=== PATIENT | female | born 1975 | race African-American/Black ===

== ENCOUNTER 2021-07-16 11:29 | Inpatient (IN) | payer MEDICARE, MEDICAID ==
[~2021-07-16] VITALS: Ht 162.6 cm; Wt 76.7 kg
[2021-07-16] VITALS (24 sets, daily range): BP systolic 64–181; BP diastolic 30–153
[~2021-07-16 11:29] MED LIST: ATROPINE SULFATE 1MG/10ML SYR ONE; CALCIUM CHLORIDE 1GM/10ML SYR IV ONE; EPINEPHRINE 0.1MG/ML (1:10,000) 10ML SYR ONE; ETOMIDATE 2MG/ML 10ML VIAL IV ONE; SODIUM BICARBONATE 8.4% 1 MEQ/ML 50ML SYR IV ONE; VECURONIUM BROMIDE 10 MG/VIAL IV ONE
[2021-07-16] MEDS ORDERED: CALCIUM CHLORIDE 1,000 MG in DEXT 5% WATER 100 ML IV ONE ×2 (11:45→12:15)
[2021-07-16] MEDS ORDERED: INSULIN REGULAR (HUMULIN R) 300UNITS/3ML VIAL IV ONE ×2 (11:45→13:00)
[2021-07-16] MEDS ORDERED: SODIUM BICARBONATE 8.4% 1 MEQ/ML 50ML SYR IV ONE ×2 (11:45→12:15)
[2021-07-16] MEDS ORDERED: NOREPINEPHRINE 8MG/250ML PMX 250 ML IV ONE ×2 (12:15→12:23)
[2021-07-16] MEDS ORDERED: VECURONIUM BROMIDE 10 MG/VIAL IV ONE (12:15)
[2021-07-16] MEDS ORDERED: ETOMIDATE 2MG/ML 10ML VIAL IV ONE (12:15)
[2021-07-16 12:28] LABS: HEMATOCRIT. 30.1 % (36.0-48.0); HEMOGLOBIN. 7.9 g/dL (12.0-16.0); MEAN CORPUSCULAR HEMOGLOBIN 30.9 pg (28.0-32.0); MEAN CORPUSCULAR VOLUME 117.3 fL (81.0-99.0); MEAN PLATELET VOLUME 8.4 fl (7.4-10.4); PLATELET 149 x1000/uL (130-400); RED BLOOD CELL COUNT 2.57 mill/uL (4.2-5.4); RED CELL DISTRIBUTION WIDTH 20.5 % (11.6-14.6)
[2021-07-16 12:37] LABS: CHLORIDE 104 mEq/L (98-107)
[2021-07-16 12:42] LABS: ETHANOL BLOOD < 10 mg/dL
[2021-07-16 12:52] LABS: HCG SCREEN NEGATIVE
[2021-07-16] MEDS ORDERED: INSULIN REGULAR (DRIP) 100 UNITS in SODIUM CHLORIDE 0.9% 99 ML IV ONE (13:00)
[2021-07-16] MEDS ORDERED: MIDAZOLAM 100MG/100ML PMX 100 ML IV PRN (13:00)
[2021-07-16 13:13] LABS: PLATELET ESTIMATE NORMAL
[2021-07-16 13:18] LABS: CLARITY URINE CLEAR (CLEAR); COLOR URINE YELLOW (YELLOW); KETONES URINE TRACE (NEGATIVE); LEUKOCYTE ESTERASE URINE NEGATIVE (NEGATIVE); NITRITE URINE NEGATIVE (NEGATIVE); OCCULT BLOOD URINE NEGATIVE (NEGATIVE); PROTEIN URINE 2+ (NEGATIVE); SPECIFIC GRAVITY URINE 1.021 (1.005-1.030); UROBILINOGEN URINE 0.2 E.U./dL (0.2-1.0)
[2021-07-16 13:55] LABS: *AMPHETAMINES SCREEN URINE NEGATIVE (NEGATIVE); *BARBITURATES SCREEN URINE NEGATIVE (NEGATIVE); *BENZODIAZEPINES SCREEN URINE NEGATIVE (NEGATIVE); *COCAINE SCREEN URINE NEGATIVE (NEGATIVE); CANNABINOID URINE SCREEN NEGATIVE (NEGATIVE); METHADONE URINE SCREEN NEGATIVE (NEGATIVE); OPIATES URINE SCREEN NEGATIVE (NEGATIVE); PHENCYCLIDINE URINE SCREEN NEGATIVE (NEGATIVE)
[2021-07-16] MEDS ORDERED: INSULIN REGULAR (DRIP) 100 UNITS in SODIUM CHLORIDE 0.9% 99 ML IV PRN (14:15)
[2021-07-16 14:40] LABS: BG BASE EXCESS -26.4 mmol/L (-2.0-2.0); BG CARBOXYHEMOGLOBIN 0.2 % (0.5-1.5); BG DEOXYHEMOGLOBIN 11.8 % (0.0-5.0); BG FRACTION INSPIRED OXYGEN 100; BG HCO3 ACT 6.4 mmol/L (22.0-26.0); BG METHEMOGLOBIN 0.2 % (0.0-1.5); BG OXYGEN SATURATION 88.2 % (92.0-98.5); BG OXYHEMOGLOBIN 87.8 % (94.0-97.0); BG PCO2 37.3 mmHg (35.0-45.0); BG PH 6.852 (7.350-7.450); BG PO2 80.7 mmHg (75.0-100.0); BG SAMPLE SITE RIGHT RADIAL; BG TOTAL HEMOGLOBIN 10.9 g/dL (12.0-18.0); BG VENT MODE VENT - AC
[2021-07-16] MEDS ORDERED: SODIUM BICARBONATE 8.4% 1 MEQ/ML 50ML SYR IV NR ×2 (14:45→17:00)
[2021-07-16] MEDS ORDERED: IPRATROPIUM/ALBUTEROL 0.5-3(2.5)MG/3ML NEB HHN SCH (15:00)
[2021-07-16] MEDS ORDERED: SODIUM BICARBONATE 150 MEQ in SODIUM CHLORIDE 0.45% 1,000 ML IV SCH (16:00)
[2021-07-16] MEDS ORDERED: MAGNESIUM/ALUMINUM HYDROXIDE/SIMETHICONE 30ML UDC PO PRN (16:30)
[2021-07-16] MEDS ORDERED: NOREPINEPHRINE 8 MG in DEXT 5% WATER 242 ML IV PRN ×2 (16:30→17:00)
[2021-07-16] MEDS ORDERED: DOCUSATE SODIUM 100MG CAPSULE PO PRN (16:30)
[2021-07-16] MEDS ORDERED: ACETAMINOPHEN 325MG TABLET PO PRN ×2 (16:30)
[2021-07-16] MEDS ORDERED: DEXTROSE 50% WATER 50ML SYRINGE IV PRN ×2 (16:30)
[2021-07-16] MEDS ORDERED: GUAIFENESIN 200MG/10ML SUGAR FREE UDC PO PRN (16:30)
[2021-07-16] MEDS ORDERED: IPRATROPIUM/ALBUTEROL 0.5-3(2.5)MG/3ML NEB NEB PRN (16:30)
[2021-07-16 16:52] LABS: BG BASE EXCESS -15.7 mmol/L (-2.0-2.0); BG CARBOXYHEMOGLOBIN 0.3 % (0.5-1.5); BG DEOXYHEMOGLOBIN 0.5 % (0.0-5.0); BG FRACTION INSPIRED OXYGEN 100; BG HCO3 ACT 10.4 mmol/L (22.0-26.0); BG METHEMOGLOBIN 0.2 % (0.0-1.5); BG OXYGEN SATURATION 99.5 % (92.0-98.5); BG PCO2 25.8 mmHg (35.0-45.0); BG PH 7.223 (7.350-7.450); BG PO2 450.6 mmHg (75.0-100.0); BG SAMPLE SITE RIGHT BRACHIAL; BG TOTAL HEMOGLOBIN 10.3 g/dL (12.0-18.0); BG TOTAL RESPIRATORY RATE 24 b/min; BG VENT MODE VENT - AC
[2021-07-16] MEDS: INSULIN REGULAR (DRIP) 100 UNITS in SODIUM CHLORIDE 0.9% 100 ML IV SCH ×2 (17:10→19:43)
[2021-07-16] MEDS: MIDAZOLAM HCL 100 MG in SODIUM CHLORIDE 0.9% 80 ML IV PRN (17:10)
[2021-07-16 17:17] LABS: TOTAL IRON BINDING CAPACITY 240 ug/dL (250-450)
[2021-07-16] MEDS: SODIUM CHLORIDE 0.9% 1,000 ML IV SCH ×2 (17:31→23:54)
[2021-07-16] MEDS: BLOOD SUGAR DIAGNOSTIC STRIP TEST SCH ×7 (17:31→23:21)
[2021-07-16 17:35] LABS: FOLIC ACID (FOLATE) SERUM >20 ng/mL ng/mL (>5.38)
[2021-07-16 17:45] LABS: VITAMIN B12 SERUM >2000 pg/mL pg/mL (211-911)
[2021-07-16] MEDS ORDERED: DEXT 5%/0.9% NACL 1,000 ML IV SCH (19:00)
[2021-07-16] MEDS ORDERED: HYDR100T26 MT (19:16)
[2021-07-16] MEDS ORDERED: CLON0.2T MT (19:17)
[2021-07-16] MEDS ORDERED: CARV25TA47 PO (19:18)
[2021-07-16] MEDS ORDERED: CALC0.253 MT (19:19)
[2021-07-16] MEDS ORDERED: CLOP-31 PO (19:19)
[2021-07-16] MEDS ORDERED: SEVE800T25 PO (19:19)
[2021-07-16] MEDS ORDERED: PREG50CA MT (19:20)
[2021-07-16] MEDS ORDERED: INSU100I28 SQ (19:21)
[2021-07-16] MEDS ORDERED: ROSU5TAB MT (19:21)
[2021-07-16] MEDS ORDERED: PROT40 MT (19:22)
[2021-07-16] MEDS ORDERED: AMLO10TA4 MT (19:22)
[2021-07-16] MEDS ORDERED: APIX2.5T MT (19:22)
[2021-07-16] MEDS ORDERED: FURO-152 MT (19:23)
[2021-07-16 20:50] LABS: BG BASE EXCESS -10.1 mmol/L (-2.0-2.0); BG CARBOXYHEMOGLOBIN 0.3 % (0.5-1.5); BG DEOXYHEMOGLOBIN 0.9 % (0.0-5.0); BG FRACTION INSPIRED OXYGEN 50; BG HCO3 ACT 15.2 mmol/L (22.0-26.0); BG METHEMOGLOBIN 0.1 % (0.0-1.5); BG OXYGEN SATURATION 99.1 % (92.0-98.5); BG OXYHEMOGLOBIN 98.7 % (94.0-97.0); BG PCO2 31.6 mmHg (35.0-45.0); BG PO2 271.8 mmHg (75.0-100.0); BG SAMPLE SITE RIGHT RADIAL; BG TOTAL HEMOGLOBIN 10.2 g/dL (12.0-18.0); BG VENT MODE VENT - AC
[2021-07-16] MEDS: PANTOPRAZOLE 80 MG in SODIUM CHLORIDE 0.9% 100 ML IV SCH (20:50)
[2021-07-16 21:35] LABS: HEMOGLOBIN 10.6 g/dL (12.0-16.0)
[2021-07-17] VITALS (92 sets, daily range): BP systolic 130–177; BP diastolic 71–101
[2021-07-17] MEDS: INSULIN REGULAR (DRIP) 100 UNITS in SODIUM CHLORIDE 0.9% 100 ML IV SCH ×2 (00:06→06:28)
[2021-07-17] MEDS: BLOOD SUGAR DIAGNOSTIC STRIP TEST SCH ×13 (00:24→16:41)
[2021-07-17 01:05] LABS: HEMATOCRIT 26.3 % (36.0-48.0); HEMOGLOBIN 8.8 g/dL (12.0-16.0)
[2021-07-17 01:22] LABS: CREATINE KINASE MB FRACTION 10.4 ng/mL (0.5-3.6)
[2021-07-17] MEDS: IPRATROPIUM/ALBUTEROL 0.5-3(2.5)MG/3ML NEB HHN SCH ×5 (04:10→21:00)
[2021-07-17] MEDS: MIDAZOLAM HCL 100 MG in SODIUM CHLORIDE 0.9% 80 ML IV PRN (04:43)
[2021-07-17] MEDS ORDERED: DEXT 5%/0.9% NACL 1,000 ML IV SCH (04:45)
[2021-07-17 05:20] LABS: BASOPHILS % 0.2 % (0.0-2.0); EOSINOPHILS % 0.1 % (0.0-5.0); HEMATOCRIT. 28.1 % (36.0-48.0); HEMOGLOBIN. 9.5 g/dL (12.0-16.0); LYMPHOCYTES % 16.1 % (20.0-50.0); MEAN CORPUSCULAR HEMOGLOBIN 31.1 pg (28.0-32.0); MEAN CORPUSCULAR VOLUME 92.4 fL (81.0-99.0); MEAN PLATELET VOLUME 8.6 fl (7.4-10.4); MONOCYTES % 14.4 % (2.0-8.0); NEUTROPHILS % 69.2 % (40.0-76.0); PLATELET 218 x1000/uL (130-400); RED BLOOD CELL COUNT 3.04 mill/uL (4.2-5.4); RED CELL DISTRIBUTION WIDTH 19.3 % (11.6-14.6)
[2021-07-17 05:23] LABS: CHLORIDE 116 mEq/L (98-107)
[2021-07-17 05:34] LABS: PHOSPHORUS 3.1 mg/dL (2.5-4.9)
[2021-07-17 05:40] LABS: CREATINE KINASE MB FRACTION 8.1 ng/mL (0.5-3.6)
[2021-07-17] MEDS: PANTOPRAZOLE 80 MG in SODIUM CHLORIDE 0.9% 100 ML IV SCH (05:47)
[2021-07-17 08:08] LABS: BG BASE EXCESS -2.6 mmol/L (-2.0-2.0); BG CARBOXYHEMOGLOBIN 0.2 % (0.5-1.5); BG DEOXYHEMOGLOBIN 4.1 % (0.0-5.0); BG HCO3 ACT 20.4 mmol/L (22.0-26.0); BG METHEMOGLOBIN 0.3 % (0.0-1.5); BG OXYGEN SATURATION 95.9 % (92.0-98.5); BG OXYHEMOGLOBIN 95.4 % (94.0-97.0); BG PCO2 28.9 mmHg (35.0-45.0); BG PH 7.466 (7.350-7.450); BG PO2 86.1 mmHg (75.0-100.0); BG SAMPLE SITE RIGHT RADIAL; BG TOTAL HEMOGLOBIN 9.8 g/dL (12.0-18.0); BG VENT MODE VENT - AC
[2021-07-17] MEDS ORDERED: KCL 20MEQ/100ML PREMIX 100 ML IV NR (08:30)
[2021-07-17] MEDS ORDERED: PANTOPRAZOLE SODIUM 40 MG/VIAL IV SCH (09:00)
[2021-07-17] MEDS ORDERED: VANCOMYCIN 1 G PREMIX 200 ML IV NR (10:30)
[2021-07-17] MEDS ORDERED: DEXTROSE 50% WATER 50ML SYRINGE IV PRN (11:00)
[2021-07-17] MEDS: INSULIN LISPRO 100 UNITS/ML SUBCUT SCH ×2 (11:33→16:47)
[2021-07-17] MEDS: CEFEPIME 500 MG in DEXTROSE 5% WATER 50 ML IV SCH (12:00)
[2021-07-17] MEDS: SODIUM BICARBONATE 100 MEQ in DEXTROSE 5% WATER 1,000 ML IV SCH ×2 (12:00→21:40)
[2021-07-17] MEDS: SUCRALFATE 1 G/10 ML UDC PO SCH ×2 (13:32→17:49)
[2021-07-17] MEDS: CLONIDINE 0.1MG TABLET PO PRN ×2 (15:31→20:46)
[2021-07-17 15:46] LABS: HEMATOCRIT 28.2 % (36.0-48.0); HEMOGLOBIN 9.4 g/dL (12.0-16.0)
[2021-07-17 16:05] LABS: INR 1.3
[2021-07-17 16:39] LABS: HEPATITIS B SURFACE ANTIGEN NEGATIVE
[2021-07-17] MEDS: DOCUSATE SODIUM SUGAR FREE 100MG/10ML UDC NG SCH (16:46)
[2021-07-17] MEDS: PANTOPRAZOLE SODIUM 40 MG/VIAL IV SCH (16:46)
[2021-07-17] MEDS ORDERED: PROPOFOL 10MG/ML 100ML 100 ML IV PRN (17:45)
[2021-07-17] MEDS: PROPOFOL 10MG/ML 100ML 100 ML IV SCH (18:51)
[2021-07-17] MEDS ORDERED: FENTANYL CITRATE/PF 2,500 MCG in SODIUM CHLORIDE 0.9% 200 ML IV PRN (19:30)
[2021-07-17] MEDS ORDERED: EPOETIN ALFA-EPBX 10,000 UNIT/ML VIAL SUBCUT NR (21:00)
[2021-07-17] MEDS: INSULIN GLARGINE UD 100 UNITS/ML SYR SUBCUT SCH (21:39)
[2021-07-17] MEDS: CLONIDINE 0.1MG TABLET PO SCH (22:38)
[2021-07-17] MEDS: HYDRALAZINE HCL 50MG TABLET PO SCH (22:39)
[2021-07-17 23:57] LABS: HEMATOCRIT 29.3 % (36.0-48.0); HEMOGLOBIN 9.7 g/dL (12.0-16.0)
[2021-07-18] VITALS (90 sets, daily range): BP systolic 120–176; BP diastolic 69–99
[2021-07-18] MEDS: IPRATROPIUM/ALBUTEROL 0.5-3(2.5)MG/3ML NEB HHN SCH ×6 (00:30→20:48)
[2021-07-18] MEDS: SUCRALFATE 1 G/10 ML UDC PO SCH ×5 (00:32→23:36)
[2021-07-18] MEDS: INSULIN LISPRO 100 UNITS/ML SUBCUT SCH ×5 (00:34→23:36)
[2021-07-18] MEDS: BLOOD SUGAR DIAGNOSTIC STRIP TEST SCH ×5 (00:35→23:36)
[2021-07-18] MEDS: CLONIDINE 0.1MG TABLET PO PRN (03:38)
[2021-07-18 04:52] LABS: BASOPHILS % 0.4 % (0.0-2.0); EOSINOPHILS % 0.2 % (0.0-5.0); HEMATOCRIT. 29.9 % (36.0-48.0); HEMOGLOBIN. 9.7 g/dL (12.0-16.0); LYMPHOCYTES % 13.6 % (20.0-50.0); MEAN CORPUSCULAR HEMOGLOBIN 30.1 pg (28.0-32.0); MEAN CORPUSCULAR VOLUME 92.9 fL (81.0-99.0); MEAN PLATELET VOLUME 8.4 fl (7.4-10.4); MONOCYTES % 7.6 % (2.0-8.0); NEUTROPHILS % 78.2 % (40.0-76.0); PLATELET 219 x1000/uL (130-400); RED BLOOD CELL COUNT 3.22 mill/uL (4.2-5.4); RED CELL DISTRIBUTION WIDTH 20.5 % (11.6-14.6)
[2021-07-18 05:00] LABS: CHLORIDE 114 mEq/L (98-107)
[2021-07-18 05:08] LABS: PHOSPHORUS 3.9 mg/dL (2.5-4.9)
[2021-07-18] MEDS: HYDRALAZINE HCL 50MG TABLET PO SCH ×3 (05:32→21:01)
[2021-07-18] MEDS: CLONIDINE 0.1MG TABLET PO SCH ×3 (05:33→21:01)
[2021-07-18] MEDS: PANTOPRAZOLE SODIUM 40 MG/VIAL IV SCH ×2 (08:40→17:39)
[2021-07-18] MEDS: DOCUSATE SODIUM SUGAR FREE 100MG/10ML UDC NG SCH ×2 (08:40→17:39)
[2021-07-18] MEDS: AMLODIPINE 5MG TABLET PO SCH (08:40)
[2021-07-18] MEDS: PROPOFOL 10MG/ML 100ML 100 ML IV SCH (08:43)
[2021-07-18 09:32] LABS: BG BASE EXCESS -1.1 mmol/L (-2.0-2.0); BG CARBOXYHEMOGLOBIN 0.3 % (0.5-1.5); BG DEOXYHEMOGLOBIN 1.8 % (0.0-5.0); BG FRACTION INSPIRED OXYGEN 30; BG HCO3 ACT 22.1 mmol/L (22.0-26.0); BG METHEMOGLOBIN 0.2 % (0.0-1.5); BG OXYGEN SATURATION 98.2 % (92.0-98.5); BG OXYHEMOGLOBIN 97.7 % (94.0-97.0); BG PCO2 31.3 mmHg (35.0-45.0); BG PH 7.466 (7.350-7.450); BG PO2 118.4 mmHg (75.0-100.0); BG SAMPLE SITE RIGHT RADIAL; BG TOTAL HEMOGLOBIN 9.8 g/dL (12.0-18.0); BG VENT MODE VENT - AC
[2021-07-18] MEDS: DEXT 5%/0.9% NACL 1,000 ML IV SCH ×2 (10:15→23:35)
[2021-07-18] MEDS ORDERED: VANCOMYCIN 500 MG PREMIX 100 ML IV SCH (11:00)
[2021-07-18] MEDS: CEFEPIME 500 MG in DEXTROSE 5% WATER 50 ML IV SCH (11:21)
[2021-07-18] MEDS: INSULIN GLARGINE UD 100 UNITS/ML SYR SUBCUT SCH ×2 (11:28→21:02)
[2021-07-18 17:31] LABS: HEMATOCRIT 28.5 % (36.0-48.0); HEMOGLOBIN 9.4 g/dL (12.0-16.0)
[2021-07-18] MEDS: PROPOFOL 10MG/ML 100ML 100 ML IV PRN (21:21)
[2021-07-18 23:00] LABS: HEMATOCRIT 26.9 % (36.0-48.0); HEMOGLOBIN 8.8 g/dL (12.0-16.0)
[2021-07-19] VITALS (86 sets, daily range): BP systolic 126–181; BP diastolic 71–99
[2021-07-19] MEDS: IPRATROPIUM/ALBUTEROL 0.5-3(2.5)MG/3ML NEB HHN SCH ×6 (00:32→20:34)
[2021-07-19 04:50] LABS: BASOPHILS % 0.2 % (0.0-2.0); EOSINOPHILS % 0.2 % (0.0-5.0); HEMATOCRIT. 29.5 % (36.0-48.0); HEMOGLOBIN. 9.4 g/dL (12.0-16.0); LYMPHOCYTES % 15.3 % (20.0-50.0); MEAN CORPUSCULAR HEMOGLOBIN 30.6 pg (28.0-32.0); MEAN CORPUSCULAR VOLUME 95.8 fL (81.0-99.0); MEAN PLATELET VOLUME 8.5 fl (7.4-10.4); MONOCYTES % 9.1 % (2.0-8.0); NEUTROPHILS % 75.2 % (40.0-76.0); PLATELET 187 x1000/uL (130-400); RED BLOOD CELL COUNT 3.08 mill/uL (4.2-5.4); RED CELL DISTRIBUTION WIDTH 21.1 % (11.6-14.6)
[2021-07-19 05:08] LABS: CHLORIDE 116 mEq/L (98-107)
[2021-07-19 05:22] LABS: PHOSPHORUS 3.3 mg/dL (2.5-4.9)
[2021-07-19 05:23] LABS: CREATINE KINASE 215 IU/L (26-192)
[2021-07-19] MEDS: BLOOD SUGAR DIAGNOSTIC STRIP TEST SCH ×4 (05:40→23:58)
[2021-07-19] MEDS: HYDRALAZINE HCL 50MG TABLET PO SCH ×3 (05:40→22:01)
[2021-07-19] MEDS: CLONIDINE 0.1MG TABLET PO SCH ×3 (05:40→22:00)
[2021-07-19] MEDS: INSULIN LISPRO 100 UNITS/ML SUBCUT SCH ×3 (05:40→18:19)
[2021-07-19] MEDS: SUCRALFATE 1 G/10 ML UDC PO SCH ×3 (05:42→17:32)
[2021-07-19] MEDS: PROPOFOL 10MG/ML 100ML 100 ML IV PRN ×2 (07:32→14:30)
[2021-07-19] MEDS: DOCUSATE SODIUM SUGAR FREE 100MG/10ML UDC NG SCH ×2 (08:40→17:30)
[2021-07-19] MEDS: PANTOPRAZOLE SODIUM 40 MG/VIAL IV SCH ×2 (08:40→17:30)
[2021-07-19] MEDS: AMLODIPINE 5MG TABLET PO SCH (08:41)
[2021-07-19] MEDS: CLONIDINE 0.1MG TABLET PO PRN (08:41)
[2021-07-19] MEDS ORDERED: LISINOPRIL 20MG TABLET PO SCH (09:00)
[2021-07-19] MEDS: CEFEPIME 500 MG in DEXTROSE 5% WATER 50 ML IV SCH (09:24)
[2021-07-19] MEDS: INSULIN GLARGINE UD 100 UNITS/ML SYR SUBCUT SCH ×2 (09:26→22:06)
[2021-07-19 09:34] LABS: BG CARBOXYHEMOGLOBIN 0.3 % (0.5-1.5); BG DEOXYHEMOGLOBIN 1.8 % (0.0-5.0); BG FRACTION INSPIRED OXYGEN 30; BG HCO3 ACT 23.5 mmol/L (22.0-26.0); BG METHEMOGLOBIN 0.3 % (0.0-1.5); BG OXYGEN SATURATION 98.2 % (92.0-98.5); BG OXYHEMOGLOBIN 97.6 % (94.0-97.0); BG PCO2 33.6 mmHg (35.0-45.0); BG PH 7.462 (7.350-7.450); BG PO2 111.9 mmHg (75.0-100.0); BG SAMPLE SITE RIGHT RADIAL; BG TOTAL HEMOGLOBIN 9.9 g/dL (12.0-18.0); BG VENT MODE VENT - AC
[2021-07-19] MEDS ORDERED: NA PHOS,M-B/NA PHOS,DI-BA ENEMA 118ML PR NR (10:30)
[2021-07-19] MEDS ORDERED: VANCOMYCIN 500 MG PREMIX 100 ML IV NR (11:00)
[2021-07-19] MEDS: DEXT 5%/0.9% NACL 1,000 ML IV SCH ×2 (13:19→19:57)
[2021-07-19] MEDS: PROPOFOL 10MG/ML 100ML 100 ML IV SCH (20:44)
[2021-07-20] VITALS (96 sets, daily range): BP systolic 145–199; BP diastolic 70–163
[2021-07-20] MEDS: INSULIN LISPRO 100 UNITS/ML SUBCUT SCH ×4 (00:06→18:00)
[2021-07-20] MEDS: SUCRALFATE 1 G/10 ML UDC PO SCH ×4 (00:12→17:44)
[2021-07-20] MEDS: IPRATROPIUM/ALBUTEROL 0.5-3(2.5)MG/3ML NEB HHN SCH ×6 (00:47→20:38)
[2021-07-20] MEDS ORDERED: PROPOFOL 10MG/ML 100ML 100 ML IV PRN (03:30)
[2021-07-20] MEDS: PROPOFOL 10MG/ML 100ML 100 ML IV PRN (03:37)
[2021-07-20] MEDS: BLOOD SUGAR DIAGNOSTIC STRIP TEST SCH ×3 (06:00→18:31)
[2021-07-20] MEDS: HYDRALAZINE HCL 50MG TABLET PO SCH ×3 (06:02→20:41)
[2021-07-20] MEDS: DEXT 5%/0.9% NACL 1,000 ML IV SCH (06:03)
[2021-07-20] MEDS: CLONIDINE 0.1MG TABLET PO SCH ×2 (06:03→13:51)
[2021-07-20] MEDS: DOCUSATE SODIUM SUGAR FREE 100MG/10ML UDC NG SCH ×2 (08:35→17:44)
[2021-07-20] MEDS: PANTOPRAZOLE SODIUM 40 MG/VIAL IV SCH ×2 (08:35→17:44)
[2021-07-20] MEDS: AMLODIPINE 10MG TABLET PO SCH (08:35)
[2021-07-20] MEDS: CLONIDINE 0.1MG TABLET PO PRN ×2 (08:36→18:44)
[2021-07-20 09:35] LABS: BG BASE EXCESS -1.4 mmol/L (-2.0-2.0); BG CARBOXYHEMOGLOBIN 0.3 % (0.5-1.5); BG DEOXYHEMOGLOBIN 1.8 % (0.0-5.0); BG FRACTION INSPIRED OXYGEN 30; BG HCO3 ACT 22.5 mmol/L (22.0-26.0); BG METHEMOGLOBIN 0.3 % (0.0-1.5); BG OXYGEN SATURATION 98.2 % (92.0-98.5); BG OXYHEMOGLOBIN 97.6 % (94.0-97.0); BG PCO2 34.6 mmHg (35.0-45.0); BG PH 7.431 (7.350-7.450); BG PO2 112.3 mmHg (75.0-100.0); BG TOTAL HEMOGLOBIN 10.1 g/dL (12.0-18.0); BG VENT MODE VENT - SIMV
[2021-07-20] MEDS: INSULIN GLARGINE UD 100 UNITS/ML SYR SUBCUT SCH ×2 (11:02→22:00)
[2021-07-20] MEDS: CEFEPIME 500 MG in DEXTROSE 5% WATER 50 ML IV SCH (11:19)
[2021-07-20] MEDS: METOPROLOL TARTRATE 50MG TABLET PO SCH ×2 (11:20→20:42)
[2021-07-20] MEDS ORDERED: BISACODYL 10MG SUPP PR NR (12:15)
[2021-07-20 15:28] LABS: BG BASE EXCESS -2.4 mmol/L (-2.0-2.0); BG CARBOXYHEMOGLOBIN 0.2 % (0.5-1.5); BG DEOXYHEMOGLOBIN 6.2 % (0.0-5.0); BG FRACTION INSPIRED OXYGEN 30; BG HCO3 ACT 21.6 mmol/L (22.0-26.0); BG METHEMOGLOBIN 0.2 % (0.0-1.5); BG OXYGEN SATURATION 93.8 % (92.0-98.5); BG OXYHEMOGLOBIN 93.4 % (94.0-97.0); BG PCO2 33.7 mmHg (35.0-45.0); BG PH 7.424 (7.350-7.450); BG PO2 69.5 mmHg (75.0-100.0); BG SAMPLE SITE RIGHT RADIAL; BG TOTAL HEMOGLOBIN 9.2 g/dL (12.0-18.0); BG VENT MODE VENT - CPAP
[2021-07-20] MEDS: CLONIDINE 0.3MG TABLET PO SCH ×2 (15:57→20:42)
[2021-07-20] MEDS: NITROGLYCERIN OINT 1GM/INCH UDPKT TD SCH ×2 (15:57→20:42)
[2021-07-20] MEDS ORDERED: VANCOMYCIN 500 MG PREMIX 100 ML IV SCH (17:00)
[2021-07-21] VITALS (57 sets, daily range): BP systolic 136–201; BP diastolic 58–113
[2021-07-21] MEDS: INSULIN LISPRO 100 UNITS/ML SUBCUT SCH ×5 (00:20→23:19)
[2021-07-21] MEDS: BLOOD SUGAR DIAGNOSTIC STRIP TEST SCH ×5 (00:20→23:16)
[2021-07-21] MEDS: SUCRALFATE 1 G/10 ML UDC PO SCH ×5 (00:24→23:20)
[2021-07-21] MEDS: IPRATROPIUM/ALBUTEROL 0.5-3(2.5)MG/3ML NEB HHN SCH ×6 (00:55→20:30)
[2021-07-21] MEDS: DEXT 5%/0.9% NACL 1,000 ML IV SCH ×2 (01:08→17:43)
[2021-07-21] MEDS: CLONIDINE 0.3MG TABLET PO SCH ×3 (05:41→21:09)
[2021-07-21] MEDS: HYDRALAZINE HCL 100MG TABLET PO SCH ×3 (05:41→21:09)
[2021-07-21] MEDS: NITROGLYCERIN OINT 1GM/INCH UDPKT TD SCH ×4 (05:41→21:10)
[2021-07-21 06:14] LABS: BASOPHILS % 0.8 % (0.0-2.0); EOSINOPHILS % 4.1 % (0.0-5.0); HEMATOCRIT. 28.1 % (36.0-48.0); HEMOGLOBIN. 9.1 g/dL (12.0-16.0); LYMPHOCYTES % 16.9 % (20.0-50.0); MEAN CORPUSCULAR HEMOGLOBIN 30.7 pg (28.0-32.0); MEAN CORPUSCULAR VOLUME 95.4 fL (81.0-99.0); MEAN PLATELET VOLUME 9.2 fl (7.4-10.4); MONOCYTES % 9.2 % (2.0-8.0); PLATELET 165 x1000/uL (130-400); RED BLOOD CELL COUNT 2.95 mill/uL (4.2-5.4); RED CELL DISTRIBUTION WIDTH 19.4 % (11.6-14.6)
[2021-07-21 06:40] LABS: PHOSPHORUS 2.4 mg/dL (2.5-4.9)
[2021-07-21] MEDS: PANTOPRAZOLE SODIUM 40 MG/VIAL IV SCH ×2 (09:02→17:40)
[2021-07-21] MEDS: DOCUSATE SODIUM SUGAR FREE 100MG/10ML UDC NG SCH ×2 (09:02→17:40)
[2021-07-21] MEDS: AMLODIPINE 10MG TABLET PO SCH (09:02)
[2021-07-21] MEDS: METOPROLOL TARTRATE 50MG TABLET PO SCH ×2 (09:02→21:08)
[2021-07-21] MEDS: INSULIN GLARGINE UD 100 UNITS/ML SYR SUBCUT SCH ×2 (09:06→21:10)
[2021-07-21] MEDS: CEFEPIME 500 MG in DEXTROSE 5% WATER 50 ML IV SCH (11:04)
[2021-07-21] MEDS: MINOXIDIL 2.5MG TABLET PO SCH ×2 (11:04→21:09)
[2021-07-21] MEDS: METOCLOPRAMIDE HCL 10MG/2ML VIAL IV SCH ×3 (11:04→23:21)
[2021-07-21] MEDS ORDERED: VANCOMYCIN 750 MG PREMIX 150 ML IV NR (13:00)
[2021-07-21] MEDS ORDERED: POTASSIUM PHOS,M-BASIC-D-BASIC 20 MMOL in DEXT 5% WATER 243.3333 ML IV NR (13:30)
[2021-07-21] MEDS ORDERED: LACTULOSE 20G/30ML UDC PO NR (14:00)
[2021-07-21] MEDS: PHENOL/SODIUM PHENOLATE 1.4% SRPAY 177ML MM PRN (17:54)
[2021-07-21] MEDS: TRAMADOL 50MG TABLET PO PRN (18:06)
[2021-07-21] MEDS ORDERED: SENNOSIDES 8.6MG TABLET PO PRN (21:00)
[2021-07-22] VITALS (14 sets, daily range): BP systolic 130–163; BP diastolic 65–93
[2021-07-22] MEDS: IPRATROPIUM/ALBUTEROL 0.5-3(2.5)MG/3ML NEB HHN SCH ×6 (00:11→23:41)
[2021-07-22] MEDS: PHENOL/SODIUM PHENOLATE 1.4% SRPAY 177ML MM PRN (00:31)
[2021-07-22] MEDS: TRAMADOL 50MG TABLET PO PRN (00:32)
[2021-07-22] MEDS: METOCLOPRAMIDE HCL 10MG/2ML VIAL IV SCH ×3 (05:49→17:39)
[2021-07-22] MEDS: SUCRALFATE 1 G/10 ML UDC PO SCH ×2 (05:49→12:24)
[2021-07-22] MEDS: HYDRALAZINE HCL 100MG TABLET PO SCH ×3 (05:53→22:10)
[2021-07-22] MEDS: NITROGLYCERIN OINT 1GM/INCH UDPKT TD SCH ×2 (05:54→17:40)
[2021-07-22] MEDS: BLOOD SUGAR DIAGNOSTIC STRIP TEST SCH ×3 (05:54→17:30)
[2021-07-22] MEDS: CLONIDINE 0.3MG TABLET PO SCH ×3 (05:55→22:00)
[2021-07-22] MEDS: INSULIN LISPRO 100 UNITS/ML SUBCUT SCH ×3 (05:55→17:30)
[2021-07-22] MEDS: BISACODYL 5MG TABLET PO PRN (05:59)
[2021-07-22 06:24] LABS: BASOPHILS % 0.8 % (0.0-2.0); EOSINOPHILS % 7.2 % (0.0-5.0); HEMATOCRIT. 28.4 % (36.0-48.0); HEMOGLOBIN. 9.3 g/dL (12.0-16.0); MEAN CORPUSCULAR HEMOGLOBIN 31.2 pg (28.0-32.0); MEAN CORPUSCULAR VOLUME 95.4 fL (81.0-99.0); MEAN PLATELET VOLUME 9.2 fl (7.4-10.4); MONOCYTES % 11.5 % (2.0-8.0); NEUTROPHILS % 53.5 % (40.0-76.0); PLATELET 146 x1000/uL (130-400); RED BLOOD CELL COUNT 2.98 mill/uL (4.2-5.4); RED CELL DISTRIBUTION WIDTH 19.2 % (11.6-14.6)
[2021-07-22 06:48] LABS: CHLORIDE 115 mEq/L (98-107)
[2021-07-22 07:04] LABS: PHOSPHORUS 2.4 mg/dL (2.5-4.9)
[2021-07-22] MEDS: DOCUSATE SODIUM SUGAR FREE 100MG/10ML UDC NG SCH ×2 (09:36→17:39)
[2021-07-22] MEDS: MINOXIDIL 2.5MG TABLET PO SCH ×2 (09:40→22:10)
[2021-07-22] MEDS: METOPROLOL TARTRATE 50MG TABLET PO SCH ×2 (09:41→22:10)
[2021-07-22] MEDS: AMLODIPINE 10MG TABLET PO SCH (09:42)
[2021-07-22] MEDS: PANTOPRAZOLE SODIUM 40 MG/VIAL IV SCH ×2 (09:42→17:39)
[2021-07-22] MEDS: DEXT 5%/0.9% NACL 1,000 ML IV SCH (09:46)
[2021-07-22] MEDS: INSULIN GLARGINE UD 100 UNITS/ML SYR SUBCUT SCH ×2 (10:57→22:11)
[2021-07-22] MEDS ORDERED: VANCOMYCIN 750 MG PREMIX 150 ML IV NR (11:30)
[2021-07-22] MEDS: CEFEPIME 500 MG in DEXTROSE 5% WATER 50 ML IV SCH (11:46)
[2021-07-22] MEDS: LIDOCAINE 5% PATCH TOP SCH (14:12)
[2021-07-22] MEDS: CLONIDINE 0.1MG TABLET PO PRN (22:11)
[2021-07-23] VITALS (10 sets, daily range): BP systolic 128–170; BP diastolic 68–114
[2021-07-23] MEDS: NITROGLYCERIN OINT 1GM/INCH UDPKT TD SCH ×3 (00:27→12:12)
[2021-07-23] MEDS: METOCLOPRAMIDE HCL 10MG/2ML VIAL IV SCH ×3 (00:27→12:12)
[2021-07-23] MEDS: INSULIN LISPRO 100 UNITS/ML SUBCUT SCH ×3 (00:28→12:00)
[2021-07-23] MEDS: DEXT 5%/0.9% NACL 1,000 ML IV SCH (03:04)
[2021-07-23] MEDS: IPRATROPIUM/ALBUTEROL 0.5-3(2.5)MG/3ML NEB HHN SCH ×3 (04:39→13:04)
[2021-07-23] MEDS: BISACODYL 5MG TABLET PO PRN (04:54)
[2021-07-23] MEDS: ONDANSETRON HCL 4MG/2ML INJ IV PRN ×2 (04:55→05:01)
[2021-07-23] MEDS: HYDRALAZINE HCL 100MG TABLET PO SCH ×2 (05:49→14:00)
[2021-07-23] MEDS: CLONIDINE 0.3MG TABLET PO SCH ×2 (05:49→14:00)
[2021-07-23] MEDS: BLOOD SUGAR DIAGNOSTIC STRIP TEST SCH ×3 (05:50→12:00)
[2021-07-23] MEDS: TRAMADOL 50MG TABLET PO PRN (05:53)
[2021-07-23 06:37] LABS: BASOPHILS % 0.9 % (0.0-2.0); EOSINOPHILS % 6.3 % (0.0-5.0); HEMATOCRIT. 29.7 % (36.0-48.0); HEMOGLOBIN. 9.8 g/dL (12.0-16.0); LYMPHOCYTES % 22.6 % (20.0-50.0); MEAN CORPUSCULAR HEMOGLOBIN 30.9 pg (28.0-32.0); MEAN CORPUSCULAR VOLUME 93.1 fL (81.0-99.0); MEAN PLATELET VOLUME 9.3 fl (7.4-10.4); MONOCYTES % 11.3 % (2.0-8.0); NEUTROPHILS % 58.9 % (40.0-76.0); PLATELET 175 x1000/uL (130-400); RED BLOOD CELL COUNT 3.19 mill/uL (4.2-5.4); RED CELL DISTRIBUTION WIDTH 17.9 % (11.6-14.6)
[2021-07-23] MEDS: PANTOPRAZOLE SODIUM 40 MG/VIAL IV SCH (09:58)
[2021-07-23] MEDS: DOCUSATE SODIUM SUGAR FREE 100MG/10ML UDC NG SCH (09:58)
[2021-07-23] MEDS: MINOXIDIL 2.5MG TABLET PO SCH (09:59)
[2021-07-23] MEDS: METOPROLOL TARTRATE 50MG TABLET PO SCH (09:59)
[2021-07-23] MEDS: AMLODIPINE 10MG TABLET PO SCH (09:59)
[2021-07-23] MEDS: LIDOCAINE 5% PATCH TOP SCH (10:18)
[2021-07-23] MEDS: INSULIN GLARGINE UD 100 UNITS/ML SYR SUBCUT SCH (10:18)
[2021-07-23] MEDS ORDERED: SORBITOL 70% SOLN 30ML PO NR (16:30)
[2021-07-23] MEDS ORDERED: LACTULOSE 20G/30ML UDC PO SCH (22:00)
== END 2021-07-23 15:50 | disposition home or self-care (01) | DRG 91 ==
LOC: ER 11:29 → MICUSO 13:47 → EDBEDREQTM 13:49 → EDBEDREQ 13:49 → ENRESERV 15:24 → SUPCPDRO 16:22 → 5EST 07-22 02:30
PROVIDERS: ADMIT Internal Medicine; ATTEND Internal Medicine
PROC: 5A1955Z Respiratory Ventilation, Greater than 96 Consecutive Hours (ICD-10-PCS; principal; 2021-07-16)
PROC: 02HV33Z Insertion of Infusion Device into Superior Vena Cava, Percutaneous Approach (ICD-10-PCS; 2021-07-16)
PROC: B548ZZA Ultrasonography of Superior Vena Cava, Guidance (ICD-10-PCS; 2021-07-16)
PROC: 0BH17EZ Insertion of Endotracheal Airway into Trachea, Via Natural or Artificial Opening (ICD-10-PCS; 2021-07-16)
DX: G92.8 Other toxic encephalopathy (principal); I21.4 Non-ST elevation (NSTEMI) myocardial infarction; N17.0 Acute kidney failure with tubular necrosis; E11.10 Type 2 diabetes mellitus with ketoacidosis without coma; E43 Unspecified severe protein-calorie malnutrition; I46.9 Cardiac arrest, cause unspecified; K72.00 Acute and subacute hepatic failure without coma; R57.1 Hypovolemic shock; J96.21 Acute and chronic respiratory failure with hypoxia; N18.6 End stage renal disease; S22.41XA Multiple fractures of ribs, right side, initial encounter for closed fracture; E87.0 Hyperosmolality and hypernatremia; I12.0 Hypertensive chronic kidney disease with stage 5 chronic kidney disease or end stage renal disease; R18.8 Other ascites; E78.5 Hyperlipidemia, unspecified; E83.52 Hypercalcemia; E87.5 Hyperkalemia; T68.XXXA Hypothermia, initial encounter; I25.10 Atherosclerotic heart disease of native coronary artery without angina pectoris; D53.9 Nutritional anemia, unspecified; X58.XXXA Exposure to other specified factors, initial encounter; E11.22 Type 2 diabetes mellitus with diabetic chronic kidney disease; K52.9 Noninfective gastroenteritis and colitis, unspecified; Z20.822 Contact with and (suspected) exposure to COVID-19; E11.51 Type 2 diabetes mellitus with diabetic peripheral angiopathy without gangrene; Z88.2 Allergy status to sulfonamides; Z79.899 Other long term (current) drug therapy; Z79.4 Long term (current) use of insulin; Z79.01 Long term (current) use of anticoagulants; Z68.29 Body mass index [BMI] 29.0-29.9, adult; Z98.61 Coronary angioplasty status; Z86.73 Personal history of transient ischemic attack (TIA), and cerebral infarction without residual deficits; Z87.19 Personal history of other diseases of the digestive system; Z99.2 Dependence on renal dialysis; Y93.89 Activity, other specified; Y92.89 Other specified places as the place of occurrence of the external cause; Y99.8 Other external cause status; Z82.49 Family history of ischemic heart disease and other diseases of the circulatory system; Z83.3 Family history of diabetes mellitus
CPT/HCPCS: 31500; 36415; 36600; 71045; 71110; 74018; 76700; 80048; 80051; 80053; 80076; 80202; 80305; 80320; 81003; 82010; 82140; 82375; 82550; 82553; 82607; 82746; 82805; 82962; 83036; 83540; 83550; 83605; 83735; 83970; 84100; 84132; 84145; 84478; 84484; 84703; 85014; 85018; 85025; 85044; 86705; 86709; 86803; 86850; 86900; 86920; 87070; 87077; 87340; 87426; 92610; 93005; 93306; 93970; 93971; 94002; 94003; 94640; 97162; 99291; C9113; J0461; J0692; J0885; J1815; J2250; J2405; J2704; J2765; J3010; J3370; J3480; J3490; J7040; J7042; J7050; J7060; J7070; A4315; G0480

== ENCOUNTER 2021-10-25 04:01 | Inpatient (IN) | payer MEDICARE, MEDICAID ==
[~2021-10-25] VITALS: Ht 165.1 cm; Wt 70.9 kg
[2021-10-25] VITALS (8 sets, daily range): BP systolic 139–182; BP diastolic 75–99
[~2021-10-25 04:01] MED LIST changes: +AMLO10TA4 MT; +APIX2.5T MT; -ATROPINE SULFATE 1MG/10ML SYR ONE; +CALC0.253 MT; -CALCIUM CHLORIDE 1GM/10ML SYR IV ONE; +CARV25TA47 PO; +CLON0.2T MT; +CLOP-31 PO; -EPINEPHRINE 0.1MG/ML (1:10,000) 10ML SYR ONE; -ETOMIDATE 2MG/ML 10ML VIAL IV ONE; +FURO-152 MT; +HYDR100T26 MT; +INSU100I28 SQ; +PREG50CA MT; +PROT40 MT; +ROSU5TAB MT; +SEVE800T25 PO; -SODIUM BICARBONATE 8.4% 1 MEQ/ML 50ML SYR IV ONE; -VECURONIUM BROMIDE 10 MG/VIAL IV ONE
[2021-10-25] MEDS ORDERED: ASPIRIN 325MG EC TABLET PO ONE (04:30)
[2021-10-25] MEDS ORDERED: NITROGLYCERIN 0.4MG TABLET SL SL ONE (04:30)
[2021-10-25 04:34] LABS: BASOPHILS % 1.2 % (0.0-2.0); EOSINOPHILS % 3.3 % (0.0-5.0); HEMATOCRIT. 38.2 % (36.0-48.0); HEMOGLOBIN. 12.5 g/dL (12.0-16.0); LYMPHOCYTES % 29.7 % (20.0-50.0); MEAN CORPUSCULAR HEMOGLOBIN 30.9 pg (28.0-32.0); MEAN CORPUSCULAR VOLUME 94.6 fL (81.0-99.0); MEAN PLATELET VOLUME 9.2 fl (7.4-10.4); MONOCYTES % 9.9 % (2.0-8.0); NEUTROPHILS % 55.9 % (40.0-76.0); PLATELET 162 x1000/uL (130-400); RED BLOOD CELL COUNT 4.04 mill/uL (4.2-5.4); RED CELL DISTRIBUTION WIDTH 18.9 % (11.6-14.6)
[2021-10-25 04:41] LABS: CHLORIDE 105 mEq/L (98-107)
[2021-10-25] MEDS ORDERED: NITROGLYCERIN 50MG PREMIX 250 ML IV ONE (06:30)
[2021-10-25] MEDS ORDERED: FUROSEMIDE 40MG/4ML VIAL IVP ONE (06:30)
[2021-10-25] MEDS ORDERED: NITROGLYCERIN 50MG PREMIX 250 ML IV SCH (07:15)
[2021-10-25] MEDS ORDERED: CLONIDINE 0.1MG TABLET PO PRN (08:00)
[2021-10-25] MEDS ORDERED: GUAIFENESIN 200MG/10ML SUGAR FREE UDC PO PRN (08:00)
[2021-10-25] MEDS ORDERED: DOCUSATE SODIUM 100MG CAPSULE PO PRN (08:00)
[2021-10-25] MEDS ORDERED: IPRATROPIUM/ALBUTEROL 0.5-3(2.5)MG/3ML NEB HHN PRN (08:00)
[2021-10-25] MEDS ORDERED: ACETAMINOPHEN 325MG TABLET PO PRN (08:00)
[2021-10-25] MEDS ORDERED: DEXTROSE 50% WATER 50ML SYRINGE IV PRN (08:00)
[2021-10-25] MEDS ORDERED: ENOXAPARIN 30MG/0.3ML SYR SUBCUT SCH (09:00)
[2021-10-25 09:18] LABS: BASOPHILS % 1.1 % (0.0-2.0); EOSINOPHILS % 3.3 % (0.0-5.0); HEMATOCRIT. 38.6 % (36.0-48.0); HEMOGLOBIN. 12.6 g/dL (12.0-16.0); LYMPHOCYTES % 38.5 % (20.0-50.0); MEAN PLATELET VOLUME 9.1 fl (7.4-10.4); MONOCYTES % 8.3 % (2.0-8.0); NEUTROPHILS % 48.8 % (40.0-76.0); PLATELET 153 x1000/uL (130-400); RED BLOOD CELL COUNT 4.06 mill/uL (4.2-5.4); RED CELL DISTRIBUTION WIDTH 19.1 % (11.6-14.6)
[2021-10-25] MEDS ORDERED: ASPIRIN 81MG EC TABLET PO SCH (09:30)
[2021-10-25] MEDS: LORAZEPAM 0.5MG TABLET PO PRN (10:42)
[2021-10-25] MEDS ORDERED: ENOXAPARIN 60MG/0.6ML SYR SUBCUT SCH (11:00)
[2021-10-25] MEDS ORDERED: HYDRALAZINE 20MG/ML VIAL IV PRN (12:45)
[2021-10-25 12:50] LABS: INR 1.2; PROTHROMBIN TIME 12.7 sec (9.6-11.0)
[2021-10-25 13:23] LABS: CREATINE KINASE 77 IU/L (26-192)
[2021-10-25] MEDS ORDERED: NALOXONE HCL 0.4MG/ML VIAL IV PRN (14:45)
[2021-10-25] MEDS: MORPHINE SULFATE 2 MG/ML CPJ (NOT FOR IM USE) IV PRN ×2 (15:58→23:01)
[2021-10-25] MEDS: FUROSEMIDE 40MG/4ML VIAL IVP SCH (15:58)
[2021-10-25] MEDS: CLOPIDOGREL 75MG TABLET PO SCH (15:59)
[2021-10-25] MEDS: CLONIDINE 0.2MG TABLET PO SCH ×2 (16:00→22:09)
[2021-10-25] MEDS: AMLODIPINE 5MG TABLET PO SCH ×2 (16:00→22:10)
[2021-10-25] MEDS: ENOXAPARIN 80MG/0.8ML SYR SUBCUT SCH (16:02)
[2021-10-25] MEDS: BLOOD SUGAR DIAGNOSTIC STRIP TEST SCH ×2 (16:03→21:00)
[2021-10-25] MEDS: INSULIN LISPRO 100 UNITS/ML SUBCUT SCH ×2 (16:22→21:00)
[2021-10-25] MEDS: CARVEDILOL 12.5MG TABLET PO SCH (17:00)
[2021-10-25] MEDS: ONDANSETRON HCL 4MG/2ML INJ IV PRN (19:15)
[2021-10-25 21:04] LABS: HEPATITIS B SURFACE ANTIGEN NEGATIVE
[2021-10-25] MEDS: ATORVASTATIN CALCIUM 20MG TABLET PO SCH (22:09)
[2021-10-26] VITALS (13 sets, daily range): BP systolic 127–156; BP diastolic 50–99
[2021-10-26] MEDS: CLONIDINE 0.2MG TABLET PO SCH ×3 (05:53→22:00)
[2021-10-26] MEDS: BLOOD SUGAR DIAGNOSTIC STRIP TEST SCH ×4 (06:06→21:00)
[2021-10-26] MEDS: MORPHINE SULFATE 2 MG/ML CPJ (NOT FOR IM USE) IV PRN (06:27)
[2021-10-26 07:27] LABS: CHLORIDE 107 mEq/L (98-107)
[2021-10-26 07:35] LABS: LDL CHOLESTEROL 46 mg/dL (5-100)
[2021-10-26 07:36] LABS: HDL CHOLESTEROL 103 mg/dL (40-59); PHOSPHORUS 5.1 mg/dL (2.5-4.9)
[2021-10-26 07:45] LABS: BASOPHILS % 1.1 % (0.0-2.0); HEMATOCRIT. 33.6 % (36.0-48.0); LYMPHOCYTES % 48.7 % (20.0-50.0); MEAN CORPUSCULAR HEMOGLOBIN 31.1 pg (28.0-32.0); MEAN CORPUSCULAR VOLUME 94.9 fL (81.0-99.0); MONOCYTES % 9.6 % (2.0-8.0); NEUTROPHILS % 35.6 % (40.0-76.0); PLATELET 158 x1000/uL (130-400); RED BLOOD CELL COUNT 3.54 mill/uL (4.2-5.4); RED CELL DISTRIBUTION WIDTH 18.9 % (11.6-14.6)
[2021-10-26] MEDS: INSULIN LISPRO 100 UNITS/ML SUBCUT SCH ×4 (08:36→22:04)
[2021-10-26] MEDS: FUROSEMIDE 40MG/4ML VIAL IVP SCH (08:36)
[2021-10-26] MEDS: CLOPIDOGREL 75MG TABLET PO SCH (08:36)
[2021-10-26] MEDS: CARVEDILOL 12.5MG TABLET PO SCH ×2 (09:00→16:39)
[2021-10-26] MEDS: AMLODIPINE 5MG TABLET PO SCH ×2 (09:00→21:00)
[2021-10-26] MEDS ORDERED: NEPVIT PO (09:01)
[2021-10-26] MEDS ORDERED: CHOL2000 PO (09:01)
[2021-10-26] MEDS ORDERED: MIRT7.5T11 PO (09:01)
[2021-10-26] MEDS ORDERED: NIFE-33 PO (09:01)
[2021-10-26] MEDS ORDERED: HYDR-3735 PO (09:01)
[2021-10-26] MEDS ORDERED: TOPI25TA48 PO (09:01)
[2021-10-26] MEDS ORDERED: SEVE800T25 PO (09:01)
[2021-10-26] MEDS ORDERED: CLOP75TA33 PO (09:01)
[2021-10-26] MEDS ORDERED: FERR-63 PO (09:01)
[2021-10-26] MEDS ORDERED: ASPI-1406 PO (09:01)
[2021-10-26] MEDS: LORAZEPAM 0.5MG TABLET PO PRN ×2 (11:07→22:13)
[2021-10-26] MEDS: LOSARTAN POTASSIUM 50 MG TABLET PO SCH (11:15)
[2021-10-26] MEDS ORDERED: TRAMADOL 50MG TABLET PO PRN (11:30)
[2021-10-26] MEDS: SEVELAMER CARBONATE 800 MG TABLET PO SCH ×2 (12:52→17:42)
[2021-10-26] MEDS: PANTOPRAZOLE 40MG DR TABLET PO SCH (12:54)
[2021-10-26] MEDS: TOPIRAMATE 25MG TABLET PO SCH ×2 (12:54→21:00)
[2021-10-26] MEDS: PREGABALIN 50 MG CAPSULE PO SCH ×2 (12:55→21:00)
[2021-10-26] MEDS: ENOXAPARIN 80MG/0.8ML SYR SUBCUT SCH (15:24)
[2021-10-26] MEDS: ONDANSETRON HCL 4MG/2ML INJ IV PRN (16:31)
[2021-10-26] MEDS ORDERED: SEVE800T8 MT (19:33)
[2021-10-26] MEDS ORDERED: SIMETHICONE PO (19:36)
[2021-10-26] MEDS ORDERED: nephrovite PO (19:36)
[2021-10-26] MEDS ORDERED: MIRTAZAPINE 15MG TABLET PO SCH (21:00)
[2021-10-26] MEDS: ATORVASTATIN CALCIUM 20MG TABLET PO SCH (21:00)
[2021-10-26] MEDS ORDERED: INSULIN GLARGINE UD 100 UNITS/ML SYR SUBCUT SCH (22:00)
[2021-10-27] VITALS (7 sets, daily range): BP systolic 93–156; BP diastolic 47–80
[2021-10-27] MEDS: PANTOPRAZOLE 40MG DR TABLET PO SCH (06:37)
[2021-10-27] MEDS: CLONIDINE 0.2MG TABLET PO SCH (06:37)
[2021-10-27] MEDS: BLOOD SUGAR DIAGNOSTIC STRIP TEST SCH (06:54)
[2021-10-27] MEDS: INSULIN LISPRO 100 UNITS/ML SUBCUT SCH (06:55)
[2021-10-27] MEDS: SEVELAMER CARBONATE 800 MG TABLET PO SCH (07:20)
[2021-10-27] MEDS ORDERED: LOSA50TA3 PO (07:52)
[2021-10-27] MEDS: ONDANSETRON HCL 4MG/2ML INJ IV PRN (08:33)
[2021-10-27] MEDS: TOPIRAMATE 25MG TABLET PO SCH (09:47)
[2021-10-27] MEDS: PREGABALIN 50 MG CAPSULE PO SCH (09:47)
[2021-10-27] MEDS: LORAZEPAM 0.5MG TABLET PO PRN (09:47)
[2021-10-27] MEDS: FUROSEMIDE 40MG/4ML VIAL IVP SCH (09:47)
[2021-10-27] MEDS: AMLODIPINE 5MG TABLET PO SCH (09:47)
[2021-10-27] MEDS: CLOPIDOGREL 75MG TABLET PO SCH (09:47)
[2021-10-27] MEDS: LOSARTAN POTASSIUM 50 MG TABLET PO SCH (09:47)
[2021-10-27] MEDS ORDERED: APIXABAN 2.5 MG TABLET PO SCH (17:00)
== END 2021-10-27 11:54 | disposition home or self-care (01) | DRG 291 ==
LOC: ER 04:14 → 3WST 06:27 → ENRESERV 12:03
PROVIDERS: ADMIT Internal Medicine; ATTEND Internal Medicine
PROC: 5A09357 Assistance with Respiratory Ventilation, Less than 24 Consecutive Hours, Continuous Positive Airway Pressure (ICD-10-PCS; principal; 2021-10-25)
PROC: 5A1D70Z Performance of Urinary Filtration, Intermittent, Less than 6 Hours Per Day (ICD-10-PCS; 2021-10-26)
DX: I13.2 Hypertensive heart and chronic kidney disease with heart failure and with stage 5 chronic kidney disease, or end stage renal disease (principal); N18.6 End stage renal disease; I50.23 Acute on chronic systolic (congestive) heart failure; E46 Unspecified protein-calorie malnutrition; G93.40 Encephalopathy, unspecified; I25.5 Ischemic cardiomyopathy; I25.10 Atherosclerotic heart disease of native coronary artery without angina pectoris; E88.09 Other disorders of plasma-protein metabolism, not elsewhere classified; E78.5 Hyperlipidemia, unspecified; D64.9 Anemia, unspecified; F31.9 Bipolar disorder, unspecified; E83.39 Other disorders of phosphorus metabolism; D72.819 Decreased white blood cell count, unspecified; E10.22 Type 1 diabetes mellitus with diabetic chronic kidney disease; E10.51 Type 1 diabetes mellitus with diabetic peripheral angiopathy without gangrene; I08.1 Rheumatic disorders of both mitral and tricuspid valves; I45.10 Unspecified right bundle-branch block; K74.60 Unspecified cirrhosis of liver; Z20.822 Contact with and (suspected) exposure to COVID-19; Z79.01 Long term (current) use of anticoagulants; Z79.02 Long term (current) use of antithrombotics/antiplatelets; Z79.4 Long term (current) use of insulin; Z79.82 Long term (current) use of aspirin; Z79.899 Other long term (current) drug therapy; Z88.2 Allergy status to sulfonamides; Z99.2 Dependence on renal dialysis; Z91.041 Radiographic dye allergy status; I25.2 Old myocardial infarction; Z95.5 Presence of coronary angioplasty implant and graft; Z68.26 Body mass index [BMI] 26.0-26.9, adult; Z86.74 Personal history of sudden cardiac arrest; Z86.711 Personal history of pulmonary embolism; Z87.891 Personal history of nicotine dependence; Z87.19 Personal history of other diseases of the digestive system; Z86.73 Personal history of transient ischemic attack (TIA), and cerebral infarction without residual deficits
CPT/HCPCS: 36415; 71045; 76700; 80048; 80053; 80061; 80076; 82550; 82570; 82962; 83036; 83735; 83880; 83935; 84100; 84300; 84443; 84484; 85025; 86705; 86709; 86803; 87340; 87426; 93005; 94660; 99291; J1650; J1815; J1940; J2270; J2405; J3490

== ENCOUNTER 2021-12-18 04:05 | Inpatient (IN) | payer MEDICARE, MEDICAID ==
[~2021-12-18] VITALS: Ht 167.6 cm; Wt 63.5 kg
[2021-12-18] VITALS (32 sets, daily range): BP systolic 90–182; BP diastolic 47–120
[~2021-12-18 04:05] MED LIST changes: +ASPI-1406 PO; +CHOL2000 PO; -CLOP-31 PO; +CLOP75TA33 PO; +FERR-63 PO; +HYDR-3735 PO; +LOSA50TA3 PO; +MIRT7.5T11 PO; +NEPVIT PO; +NIFE-33 PO; -SEVE800T25 PO; +SEVE800T8 MT; +SIMETHICONE PO; +TOPI25TA48 PO; +nephrovite PO
[2021-12-18] MEDS ORDERED: ONDANSETRON HCL 4MG/2ML INJ IV STA (04:19)
[2021-12-18] MEDS ORDERED: METOCLOPRAMIDE HCL 10MG/2ML VIAL IV STA (04:19)
[2021-12-18] MEDS ORDERED: SODIUM CHLORIDE 0.9% 1,000 ML IV ONE ×2 (04:30→08:30)
[2021-12-18 04:49] LABS: BASOPHILS % 0.4 % (0.0-2.0); EOSINOPHILS % 0.1 % (0.0-5.0); HEMATOCRIT. 40.9 % (36.0-48.0); HEMOGLOBIN. 13.4 g/dL (12.0-16.0); LYMPHOCYTES % 10.8 % (20.0-50.0); MEAN CORPUSCULAR HEMOGLOBIN 30.8 pg (28.0-32.0); MEAN CORPUSCULAR VOLUME 94.1 fL (81.0-99.0); MEAN PLATELET VOLUME 9.1 fl (7.4-10.4); MONOCYTES % 3.3 % (2.0-8.0); NEUTROPHILS % 85.4 % (40.0-76.0); PLATELET 197 x1000/uL (130-400); RED BLOOD CELL COUNT 4.35 mill/uL (4.2-5.4)
[2021-12-18 04:57] LABS: CHLORIDE 94 mEq/L (98-107)
[2021-12-18 05:08] LABS: BETA HYDROXYBUTYRATE 5.4 mMol/L (0.0-0.3); ETHANOL BLOOD < 10 mg/dL
[2021-12-18] MEDS ORDERED: POTASSIUM CHLORIDE 20MEQ TABLET SR PO ONE (06:15)
[2021-12-18] MEDS ORDERED: INSULIN REGULAR (DRIP) 100 UNITS in SODIUM CHLORIDE 0.9% 99 ML IV ONE (06:15)
[2021-12-18] MEDS ORDERED: ASPIRIN 81MG TABLET PO ONE (06:15)
[2021-12-18] MEDS ORDERED: INSULIN REGULAR 100U/100ML PMX 100 ML IV PRN (06:30)
[2021-12-18] MEDS ORDERED: VANCOMYCIN 1G PREMIX 200 ML IV ONE (08:30)
[2021-12-18] MEDS ORDERED: PIPERACILLIN/TAZ 3.375G PREMIX 50 ML IV ONE (08:30)
[2021-12-18] MEDS ORDERED: ACETAMINOPHEN 325MG TABLET PO PRN ×2 (10:15)
[2021-12-18] MEDS ORDERED: MAGNESIUM/ALUMINUM HYDROXIDE/SIMETHICONE 30ML UDC PO PRN (10:15)
[2021-12-18] MEDS ORDERED: PIPERACILLIN/TAZ 3.375G PREMIX 50 ML IV SCH (10:15)
[2021-12-18] MEDS ORDERED: SODIUM CHLORIDE 0.9% 1000ML BAG (SEPSIS BOLUS) IV ONE (10:15)
[2021-12-18] MEDS ORDERED: KCL 20MEQ/100ML PREMIX 100 ML IV NR (10:15)
[2021-12-18] MEDS ORDERED: CLONIDINE 0.1MG TABLET PO PRN (10:15)
[2021-12-18] MEDS ORDERED: IPRATROPIUM/ALBUTEROL 0.5-3(2.5)MG/3ML NEB NEB PRN (10:15)
[2021-12-18] MEDS ORDERED: SODIUM CHLORIDE 0.9% 1,000 ML IV SCH ×2 (10:15→10:30)
[2021-12-18] MEDS ORDERED: DOCUSATE SODIUM 100MG CAPSULE PO PRN (10:15)
[2021-12-18] MEDS ORDERED: GUAIFENESIN 200MG/10ML SUGAR FREE UDC PO PRN (10:15)
[2021-12-18] MEDS: BLOOD SUGAR DIAGNOSTIC STRIP TEST SCH ×7 (10:58→21:00)
[2021-12-18] MEDS ORDERED: INSULIN REGULAR 100U/100ML PMX 100 ML IV SCH (11:00)
[2021-12-18] MEDS ORDERED: LIDOCAINE HCL/PF 1% 10 MG/ML 5ML VIAL ONE (11:15)
[2021-12-18] MEDS: ENOXAPARIN 80MG/0.8ML SYR SUBCUT SCH (11:17)
[2021-12-18] MEDS: PANTOPRAZOLE SODIUM 40 MG/VIAL IV SCH (11:17)
[2021-12-18] MEDS ORDERED: HYDROCORTISONE SOD SUCCINATE 100 MG/2 ML VIAL IV NR (11:45)
[2021-12-18] MEDS ORDERED: DIPHENHYDRAMINE 50MG/ML VIAL IV NR (11:45)
[2021-12-18] MEDS ORDERED: FAMOTIDINE 20MG/2ML VIAL IV NR (11:45)
[2021-12-18] MEDS: ONDANSETRON HCL 4MG/2ML INJ IV PRN ×3 (12:15→23:58)
[2021-12-18 12:31] LABS: T4 FREE 1.46 ng/dL (0.76-1.46)
[2021-12-18 12:47] LABS: VITAMIN B12 SERUM >2000 pg/mL pg/mL (211-911)
[2021-12-18] MEDS ORDERED: VANCOMYCIN 500 MG in DEXT 5% WATER 100 ML IV NR (13:00)
[2021-12-18 13:16] LABS: BG BASE EXCESS 3.1 mmol/L (-2.0-2.0); BG CARBOXYHEMOGLOBIN 0.8 % (0.5-1.5); BG DEOXYHEMOGLOBIN 3.1 % (0.0-5.0); BG FRACTION INSPIRED OXYGEN 21; BG HCO3 ACT 25.9 mmol/L (22.0-26.0); BG METHEMOGLOBIN 0.3 % (0.0-1.5); BG OXYGEN SATURATION 96.9 % (92.0-98.5); BG OXYHEMOGLOBIN 95.8 % (94.0-97.0); BG PCO2 33.9 mmHg (35.0-45.0); BG PH 7.501 (7.350-7.450); BG PO2 89.5 mmHg (75.0-100.0); BG SAMPLE SITE RIGHT RADIAL; BG TOTAL HEMOGLOBIN 13.9 g/dL (12.0-18.0); BG VENT MODE ROOM AIR
[2021-12-18 13:34] LABS: BETA HYDROXYBUTYRATE 0.3 mMol/L (0.0-0.3)
[2021-12-18] MEDS: DEXTROSE 50% WATER 50ML SYRINGE IV PRN (14:41)
[2021-12-18] MEDS ORDERED: MORPHINE SULFATE 2 MG/ML CPJ (NOT FOR IM USE) IV NR (15:00)
[2021-12-18 16:48] LABS: HEPATITIS B SURFACE ANTIGEN NEGATIVE
[2021-12-18] MEDS ORDERED: NALOXONE HCL 0.4MG/ML VIAL IV PRN (17:15)
[2021-12-18] MEDS: INSULIN LISPRO 100 UNITS/ML SUBCUT SCH ×3 (18:11→21:00)
[2021-12-18] MEDS: PIPERACILLIN/TAZOBACTAM 3.375G in DEXT 5% WATER 50ML IV SCH (21:47)
[2021-12-18] MEDS: ATORVASTATIN CALCIUM 40MG TABLET PO SCH (21:48)
[2021-12-18] MEDS: INSULIN GLARGINE 100 UNITS/ML SUBCUT SCH (22:00)
[2021-12-19] VITALS (34 sets, daily range): BP systolic 96–152; BP diastolic 41–113
[2021-12-19 02:06] LABS: CLARITY URINE CLEAR (CLEAR); COLOR URINE DARK YELLOW (YELLOW); KETONES URINE TRACE (NEGATIVE); LEUKOCYTE ESTERASE URINE 1+ (NEGATIVE); NITRITE URINE NEGATIVE (NEGATIVE); OCCULT BLOOD URINE 1+ (NEGATIVE); PROTEIN URINE 3+ (NEGATIVE); SPECIFIC GRAVITY URINE 1.021 (1.005-1.030)
[2021-12-19 02:35] LABS: *AMPHETAMINES SCREEN URINE NEGATIVE (NEGATIVE); *BARBITURATES SCREEN URINE NEGATIVE (NEGATIVE); *BENZODIAZEPINES SCREEN URINE NEGATIVE (NEGATIVE); *COCAINE SCREEN URINE NEGATIVE (NEGATIVE); METHADONE URINE SCREEN NEGATIVE (NEGATIVE); OPIATES URINE SCREEN NEGATIVE (NEGATIVE); PHENCYCLIDINE URINE SCREEN NEGATIVE (NEGATIVE)
[2021-12-19 03:07] LABS: CANNABINOID URINE SCREEN PRESUMTIVE POSITIVE (NEGATIVE)
[2021-12-19 06:58] LABS: BASOPHILS % 0.3 % (0.0-2.0); EOSINOPHILS % 0.4 % (0.0-5.0); HEMATOCRIT. 43.6 % (36.0-48.0); HEMOGLOBIN. 14.5 g/dL (12.0-16.0); LYMPHOCYTES % 12.5 % (20.0-50.0); MEAN CORPUSCULAR HEMOGLOBIN 31.1 pg (28.0-32.0); MEAN CORPUSCULAR VOLUME 93.4 fL (81.0-99.0); MEAN PLATELET VOLUME 9.4 fl (7.4-10.4); MONOCYTES % 5.2 % (2.0-8.0); NEUTROPHILS % 81.6 % (40.0-76.0); PLATELET 186 x1000/uL (130-400); RED BLOOD CELL COUNT 4.67 mill/uL (4.2-5.4); RED CELL DISTRIBUTION WIDTH 18.5 % (11.6-14.6)
[2021-12-19 07:09] LABS: CHLORIDE 101 mEq/L (98-107)
[2021-12-19 07:15] LABS: INR 1.1
[2021-12-19 07:17] LABS: PHOSPHORUS 3.8 mg/dL (2.5-4.9)
[2021-12-19] MEDS: INSULIN LISPRO 100 UNITS/ML SUBCUT SCH ×7 (07:50→21:23)
[2021-12-19] MEDS: BLOOD SUGAR DIAGNOSTIC STRIP TEST SCH ×4 (08:36→21:00)
[2021-12-19] MEDS: PIPERACILLIN/TAZOBACTAM 3.375G in DEXT 5% WATER 50ML IV SCH ×2 (08:45→21:21)
[2021-12-19] MEDS: ENOXAPARIN 80MG/0.8ML SYR SUBCUT SCH ×2 (08:45→09:00)
[2021-12-19] MEDS: ASPIRIN 81MG TABLET PO SCH (09:00)
[2021-12-19] MEDS ORDERED: VANCOMYCIN 1G PREMIX 200 ML IV NR (10:30)
[2021-12-19] MEDS: ONDANSETRON HCL 4MG/2ML INJ IV PRN ×3 (10:49→19:18)
[2021-12-19] MEDS: MORPHINE SULFATE 2 MG/ML CPJ (NOT FOR IM USE) IV PRN ×4 (10:50→23:48)
[2021-12-19] MEDS: PANTOPRAZOLE SODIUM 40 MG/VIAL IV SCH (10:50)
[2021-12-19] MEDS: ATORVASTATIN CALCIUM 40MG TABLET PO SCH (21:21)
[2021-12-19] MEDS: INSULIN GLARGINE 100 UNITS/ML SUBCUT SCH (21:23)
[2021-12-19] MEDS: ZOLPIDEM TARTRATE 5MG TABLET PO PRN (22:24)
[2021-12-20] VITALS (31 sets, daily range): BP systolic 85–161; BP diastolic 20–93
[2021-12-20 04:45] LABS: BASOPHILS % 0.9 % (0.0-2.0); EOSINOPHILS % 2.2 % (0.0-5.0); HEMOGLOBIN. 12.8 g/dL (12.0-16.0); LYMPHOCYTES % 12.3 % (20.0-50.0); MEAN CORPUSCULAR VOLUME 94.3 fL (81.0-99.0); MEAN PLATELET VOLUME 9.5 fl (7.4-10.4); MONOCYTES % 6.1 % (2.0-8.0); NEUTROPHILS % 78.5 % (40.0-76.0); PLATELET 144 x1000/uL (130-400); RED BLOOD CELL COUNT 4.14 mill/uL (4.2-5.4); RED CELL DISTRIBUTION WIDTH 18.1 % (11.6-14.6)
[2021-12-20 05:01] LABS: PHOSPHORUS 4.7 mg/dL (2.5-4.9)
[2021-12-20] MEDS: ONDANSETRON HCL 4MG/2ML INJ IV PRN ×2 (05:22→09:34)
[2021-12-20] MEDS: MORPHINE SULFATE 2 MG/ML CPJ (NOT FOR IM USE) IV PRN ×4 (05:23→20:25)
[2021-12-20] MEDS: INSULIN LISPRO 100 UNITS/ML SUBCUT SCH ×7 (07:22→21:18)
[2021-12-20] MEDS: BLOOD SUGAR DIAGNOSTIC STRIP TEST SCH ×4 (07:22→21:17)
[2021-12-20] MEDS: PANTOPRAZOLE SODIUM 40 MG/VIAL IV SCH (08:51)
[2021-12-20] MEDS: PIPERACILLIN/TAZOBACTAM 3.375G in DEXT 5% WATER 50ML IV SCH ×2 (08:51→21:15)
[2021-12-20] MEDS: ASPIRIN 81MG TABLET PO SCH (08:52)
[2021-12-20] MEDS: CLOPIDOGREL 75MG TABLET PO SCH (08:52)
[2021-12-20] MEDS ORDERED: BISACODYL 10MG SUPP PR ONE (10:45)
[2021-12-20] MEDS ORDERED: LACTULOSE 20G/30ML UDC PO SCH (12:00)
[2021-12-20] MEDS ORDERED: VANCOMYCIN 750MG PREMIX 150 ML IV NR (21:00)
[2021-12-20] MEDS: ATORVASTATIN CALCIUM 40MG TABLET PO SCH (21:15)
[2021-12-20] MEDS: INSULIN GLARGINE 100 UNITS/ML SUBCUT SCH (21:19)
[2021-12-21] VITALS (15 sets, daily range): BP systolic 97–154; BP diastolic 31–96
[2021-12-21] MEDS: MORPHINE SULFATE 2 MG/ML CPJ (NOT FOR IM USE) IV PRN ×4 (00:47→21:23)
[2021-12-21] MEDS: ONDANSETRON HCL 4MG/2ML INJ IV PRN (00:48)
[2021-12-21 06:45] LABS: HEMATOCRIT. 41.2 % (36.0-48.0); HEMOGLOBIN. 13.8 g/dL (12.0-16.0); MEAN CORPUSCULAR HEMOGLOBIN 31.2 pg (28.0-32.0); MEAN CORPUSCULAR VOLUME 93.1 fL (81.0-99.0); MEAN PLATELET VOLUME 9.8 fl (7.4-10.4); PLATELET 135 x1000/uL (130-400); RED BLOOD CELL COUNT 4.43 mill/uL (4.2-5.4)
[2021-12-21] MEDS: BLOOD SUGAR DIAGNOSTIC STRIP TEST SCH ×4 (07:30→21:32)
[2021-12-21 07:45] LABS: PHOSPHORUS 3.5 mg/dL (2.5-4.9)
[2021-12-21] MEDS: INSULIN LISPRO 100 UNITS/ML SUBCUT SCH ×7 (08:00→21:00)
[2021-12-21] MEDS: ENOXAPARIN 80MG/0.8ML SYR SUBCUT SCH (09:00)
[2021-12-21] MEDS: PANTOPRAZOLE SODIUM 40 MG/VIAL IV SCH (09:00)
[2021-12-21] MEDS: ASPIRIN 81MG TABLET PO SCH (09:00)
[2021-12-21] MEDS: PIPERACILLIN/TAZOBACTAM 3.375G in DEXT 5% WATER 50ML IV SCH ×2 (09:10→21:26)
[2021-12-21] MEDS: CLOPIDOGREL 75MG TABLET PO SCH (09:10)
[2021-12-21] MEDS ORDERED: HYDROCORTISONE SOD SUCCINATE 100 MG/2 ML VIAL IV NR (09:30)
[2021-12-21] MEDS ORDERED: DIPHENHYDRAMINE 50MG/ML VIAL IV NR (09:30)
[2021-12-21] MEDS ORDERED: FAMOTIDINE 20MG/2ML VIAL IV NR (09:30)
[2021-12-21] MEDS ORDERED: LIDOCAINE HCL 1% 10 MG/ML 10ML VIAL ONE (09:32)
[2021-12-21] MEDS ORDERED: IODIXANOL 320MG/ML 100 ML BOTTLE IV ONE (09:32)
[2021-12-21] MEDS ORDERED: FENTANYL CITRATE/PF 50MCG/ML 2ML VIAL ONE (09:32)
[2021-12-21] MEDS ORDERED: DIPHENHYDRAMINE 50MG/ML VIAL ONE (09:32)
[2021-12-21] MEDS ORDERED: MIDAZOLAM HCL 2 MG/2 ML VIAL ONE (09:32)
[2021-12-21] MEDS ORDERED: VERAPAMIL HCL 2.5 MG/1 ML 2ML VIAL IV ONE (09:46)
[2021-12-21] MEDS ORDERED: NICARDIPINE 100MCG/ML 10ML VIAL (CATH LAB) IV ONE (10:56)
[2021-12-21] MEDS ORDERED: NITROGLYCERIN 50MCG/ML 10ML VIAL (CATH LAB) IV ONE (10:56)
[2021-12-21] MEDS ORDERED: HEPARIN SODIUM 1,000 UNIT/1ML VIAL IV ONE (10:56)
[2021-12-21] MEDS ORDERED: TICAGRELOR 90 MG TABLET PO ONE (11:02)
[2021-12-21] MEDS ORDERED: ASPIRIN 81MG TABLET ONE (11:09)
[2021-12-21] MEDS: DEXTROSE 50% WATER 50ML SYRINGE IV PRN ×2 (11:58→13:18)
[2021-12-21] MEDS ORDERED: ACETAMINOPHEN 325MG TABLET PO PRN (12:15)
[2021-12-21] MEDS ORDERED: ATROPINE SULFATE 1MG/10ML SYR IV PRN (12:15)
[2021-12-21] MEDS: TICAGRELOR 90 MG TABLET PO SCH (18:43)
[2021-12-21] MEDS: ATORVASTATIN CALCIUM 40MG TABLET PO SCH (21:26)
[2021-12-21] MEDS: INSULIN GLARGINE 100 UNITS/ML SUBCUT SCH (22:22)
[2021-12-22] VITALS (19 sets, daily range): BP systolic 117–142; BP diastolic 33–109
[2021-12-22] MEDS: MORPHINE SULFATE 2 MG/ML CPJ (NOT FOR IM USE) IV PRN ×2 (04:52→16:53)
[2021-12-22] MEDS: BLOOD SUGAR DIAGNOSTIC STRIP TEST SCH ×3 (07:30→21:19)
[2021-12-22] MEDS: TICAGRELOR 90 MG TABLET PO SCH ×2 (08:24→19:27)
[2021-12-22] MEDS: ASPIRIN 81MG TABLET PO SCH (08:25)
[2021-12-22] MEDS: FAMOTIDINE 20MG/2ML VIAL IV SCH (08:25)
[2021-12-22] MEDS: APIXABAN 2.5 MG TABLET PO SCH ×2 (08:28→19:27)
[2021-12-22] MEDS: INSULIN LISPRO 100 UNITS/ML SUBCUT SCH ×7 (08:31→21:00)
[2021-12-22] MEDS: PIPERACILLIN/TAZOBACTAM 3.375G in DEXT 5% WATER 50ML IV SCH ×2 (08:36→21:15)
[2021-12-22 11:17] LABS: BASOPHILS % 0.7 % (0.0-2.0); EOSINOPHILS % 1.5 % (0.0-5.0); HEMATOCRIT. 47.6 % (36.0-48.0); HEMOGLOBIN. 15.3 g/dL (12.0-16.0); LYMPHOCYTES % 16.1 % (20.0-50.0); MEAN CORPUSCULAR HEMOGLOBIN 30.5 pg (28.0-32.0); MEAN CORPUSCULAR VOLUME 95.3 fL (81.0-99.0); MEAN PLATELET VOLUME 10.1 fl (7.4-10.4); MONOCYTES % 6.2 % (2.0-8.0); NEUTROPHILS % 75.5 % (40.0-76.0); PLATELET 141 x1000/uL (130-400); RED CELL DISTRIBUTION WIDTH 18.8 % (11.6-14.6)
[2021-12-22 11:48] LABS: PHOSPHORUS 4.3 mg/dL (2.5-4.9)
[2021-12-22] MEDS: ATORVASTATIN CALCIUM 40MG TABLET PO SCH (21:26)
[2021-12-22] MEDS: INSULIN GLARGINE 100 UNITS/ML SUBCUT SCH (21:29)
[2021-12-22 22:10] LABS: PLATELET ESTIMATE NORMAL
[2021-12-23] VITALS (19 sets, daily range): BP systolic 97–152; BP diastolic 26–83
[2021-12-23] MEDS: MORPHINE SULFATE 2 MG/ML CPJ (NOT FOR IM USE) IV PRN ×2 (01:54→09:05)
[2021-12-23] MEDS: BLOOD SUGAR DIAGNOSTIC STRIP TEST SCH ×4 (06:17→20:50)
[2021-12-23] MEDS: DEXTROSE 50% WATER 50ML SYRINGE IV PRN (06:26)
[2021-12-23] MEDS: INSULIN LISPRO 100 UNITS/ML SUBCUT SCH ×7 (06:50→20:52)
[2021-12-23 07:33] LABS: BASOPHILS % 0.9 % (0.0-2.0); EOSINOPHILS % 4.1 % (0.0-5.0); HEMATOCRIT. 41.2 % (36.0-48.0); HEMOGLOBIN. 13.6 g/dL (12.0-16.0); LYMPHOCYTES % 22.3 % (20.0-50.0); MEAN CORPUSCULAR HEMOGLOBIN 31.1 pg (28.0-32.0); MEAN PLATELET VOLUME 9.8 fl (7.4-10.4); MONOCYTES % 8.6 % (2.0-8.0); NEUTROPHILS % 64.1 % (40.0-76.0); PLATELET 147 x1000/uL (130-400); RED BLOOD CELL COUNT 4.38 mill/uL (4.2-5.4); RED CELL DISTRIBUTION WIDTH 18.3 % (11.6-14.6)
[2021-12-23 08:21] LABS: PHOSPHORUS 4.7 mg/dL (2.5-4.9)
[2021-12-23] MEDS: ASPIRIN 81MG TABLET PO SCH (10:51)
[2021-12-23] MEDS: APIXABAN 2.5 MG TABLET PO SCH ×2 (10:51→18:49)
[2021-12-23] MEDS: FAMOTIDINE 20MG/2ML VIAL IV SCH (10:51)
[2021-12-23] MEDS: TICAGRELOR 90 MG TABLET PO SCH ×2 (10:51→18:49)
[2021-12-23] MEDS: PIPERACILLIN/TAZOBACTAM 3.375G in DEXT 5% WATER 50ML IV SCH ×2 (10:52→20:51)
[2021-12-23] MEDS: ONDANSETRON HCL 4MG/2ML INJ IV PRN (14:43)
[2021-12-23] MEDS: TRAMADOL 50MG TABLET PO PRN (18:02)
[2021-12-23] MEDS ORDERED: HYDR50TA55 MT (18:46)
[2021-12-23] MEDS ORDERED: INSU100V3 SUBCUT ×2 (18:59)
[2021-12-23] MEDS ORDERED: DIVA500T3 PO (19:20)
[2021-12-23] MEDS ORDERED: DIVA500T3 MT (19:20)
[2021-12-23] MEDS ORDERED: SIME80TA15 MT (19:31)
[2021-12-23] MEDS ORDERED: CETI-89 MT (19:31)
[2021-12-23] MEDS ORDERED: POLY17PO3 MT (19:31)
[2021-12-23] MEDS ORDERED: SENN-257 MT (19:37)
[2021-12-23] MEDS ORDERED: DICL100G31 TP (19:37)
[2021-12-23] MEDS ORDERED: DOCU-150 MT (19:37)
[2021-12-23] MEDS: ATORVASTATIN CALCIUM 40MG TABLET PO SCH (20:51)
[2021-12-23] MEDS: ZOLPIDEM TARTRATE 5MG TABLET PO PRN (21:08)
[2021-12-23] MEDS: INSULIN GLARGINE 100 UNITS/ML SUBCUT SCH (22:00)
[2021-12-24] VITALS (15 sets, daily range): BP systolic 90–129; BP diastolic 36–91
[2021-12-24] MEDS: INSULIN LISPRO 100 UNITS/ML SUBCUT SCH ×8 (06:39→21:32)
[2021-12-24] MEDS: BLOOD SUGAR DIAGNOSTIC STRIP TEST SCH ×4 (06:39→21:35)
[2021-12-24 07:39] LABS: PHOSPHORUS 3.6 mg/dL (2.5-4.9)
[2021-12-24] MEDS: ONDANSETRON HCL 4MG/2ML INJ IV PRN ×2 (08:16→21:35)
[2021-12-24] MEDS: FAMOTIDINE 20MG/2ML VIAL IV SCH (08:16)
[2021-12-24] MEDS: APIXABAN 2.5 MG TABLET PO SCH ×2 (08:51→17:35)
[2021-12-24] MEDS: TICAGRELOR 90 MG TABLET PO SCH ×2 (08:52→17:35)
[2021-12-24] MEDS: ASPIRIN 81MG TABLET PO SCH (08:52)
[2021-12-24 11:01] LABS: BASOPHILS % 1.2 % (0.0-2.0); EOSINOPHILS % 4.1 % (0.0-5.0); HEMATOCRIT. 41.3 % (36.0-48.0); HEMOGLOBIN. 13.6 g/dL (12.0-16.0); LYMPHOCYTES % 23.5 % (20.0-50.0); MEAN CORPUSCULAR HEMOGLOBIN 30.9 pg (28.0-32.0); MONOCYTES % 13.7 % (2.0-8.0); NEUTROPHILS % 57.5 % (40.0-76.0); PLATELET 145 x1000/uL (130-400); RED BLOOD CELL COUNT 4.39 mill/uL (4.2-5.4); RED CELL DISTRIBUTION WIDTH 18.3 % (11.6-14.6)
[2021-12-24 11:20] LABS: MEAN CORPUSCULAR VOLUME 94.1 fL (81.0-99.0)
[2021-12-24] MEDS: METOCLOPRAMIDE HCL 10MG/2ML VIAL IV SCH ×2 (12:25→17:35)
[2021-12-24] MEDS: LIDOCAINE 5% PATCH TOP SCH (12:25)
[2021-12-24] MEDS: METHYL SALICYLATE/MENTHOL CREAM 85GM TOP SCH ×2 (12:26→17:35)
[2021-12-24] MEDS: ATORVASTATIN CALCIUM 40MG TABLET PO SCH (21:29)
[2021-12-24] MEDS: TRAMADOL 50MG TABLET PO PRN (21:31)
[2021-12-24] MEDS ORDERED: INSULIN GLARGINE 100 UNITS/ML SUBCUT SCH (22:00)
[2021-12-25] VITALS (10 sets, daily range): BP systolic 114–145; BP diastolic 53–89
[2021-12-25] MEDS: METHYL SALICYLATE/MENTHOL CREAM 85GM TOP SCH ×3 (01:10→12:00)
[2021-12-25] MEDS: DEXTROSE 50% WATER 50ML SYRINGE IV PRN (05:17)
[2021-12-25] MEDS: METOCLOPRAMIDE HCL 10MG/2ML VIAL IV SCH ×3 (06:07→16:50)
[2021-12-25] MEDS: BLOOD SUGAR DIAGNOSTIC STRIP TEST SCH ×3 (06:11→17:46)
[2021-12-25] MEDS: INSULIN LISPRO 100 UNITS/ML SUBCUT SCH ×6 (06:50→17:53)
[2021-12-25 07:33] LABS: BASOPHILS % 1.3 % (0.0-2.0); HEMATOCRIT. 40.9 % (36.0-48.0); HEMOGLOBIN. 13.6 g/dL (12.0-16.0); LYMPHOCYTES % 20.6 % (20.0-50.0); MEAN CORPUSCULAR HEMOGLOBIN 31.1 pg (28.0-32.0); MEAN CORPUSCULAR VOLUME 93.3 fL (81.0-99.0); MEAN PLATELET VOLUME 9.9 fl (7.4-10.4); MONOCYTES % 12.8 % (2.0-8.0); NEUTROPHILS % 61.3 % (40.0-76.0); PLATELET 149 x1000/uL (130-400); RED BLOOD CELL COUNT 4.39 mill/uL (4.2-5.4); RED CELL DISTRIBUTION WIDTH 18.5 % (11.6-14.6)
[2021-12-25 08:00] LABS: PHOSPHORUS 4.5 mg/dL (2.5-4.9)
[2021-12-25] MEDS: LIDOCAINE 5% PATCH TOP SCH (10:00)
[2021-12-25] MEDS: APIXABAN 2.5 MG TABLET PO SCH (10:00)
[2021-12-25] MEDS: TICAGRELOR 90 MG TABLET PO SCH (10:00)
[2021-12-25] MEDS: ASPIRIN 81MG TABLET PO SCH (10:00)
[2021-12-25] MEDS: FAMOTIDINE 20MG/2ML VIAL IV SCH (10:01)
[2021-12-25] MEDS ORDERED: ZOLPIDEM TARTRATE 5MG TABLET PO PRN (11:30)
[2021-12-25] MEDS ORDERED: NALOXONE HCL 0.4MG/ML VIAL IV PRN (17:00)
[2021-12-25] MEDS ORDERED: INSULIN GLARGINE 100 UNITS/ML SUBCUT SCH (22:00)
== END 2021-12-25 18:15 | DRG 853 ==
LOC: ER 04:05 → CVICU 08:30 → EDBEDREQTM 08:33 → EDBEDREQ 08:33 → ENRESERV 09:06 → 5EST 12-20 14:00 → 3WST 12-22 11:56
PROVIDERS: ADMIT Internal Medicine; ATTEND Internal Medicine
PROC: 02HV33Z Insertion of Infusion Device into Superior Vena Cava, Percutaneous Approach (ICD-10-PCS; 2021-12-18)
PROC: B548ZZA Ultrasonography of Superior Vena Cava, Guidance (ICD-10-PCS; 2021-12-18)
PROC: 5A1D70Z Performance of Urinary Filtration, Intermittent, Less than 6 Hours Per Day (ICD-10-PCS; 2021-12-18)
PROC: 5A1D70Z Performance of Urinary Filtration, Intermittent, Less than 6 Hours Per Day (ICD-10-PCS; 2021-12-20)
PROC: 02703ZZ Dilation of Coronary Artery, One Artery, Percutaneous Approach (ICD-10-PCS; principal; 2021-12-21)
PROC: 4A023N7 Measurement of Cardiac Sampling and Pressure, Left Heart, Percutaneous Approach (ICD-10-PCS; 2021-12-21)
PROC: B211YZZ Fluoroscopy of Multiple Coronary Arteries using Other Contrast (ICD-10-PCS; 2021-12-21)
PROC: B240ZZ3 Ultrasonography of Single Coronary Artery, Intravascular (ICD-10-PCS; 2021-12-21)
PROC: B41FYZZ Fluoroscopy of Right Lower Extremity Arteries using Other Contrast (ICD-10-PCS; 2021-12-21)
PROC: 5A1D70Z Performance of Urinary Filtration, Intermittent, Less than 6 Hours Per Day (ICD-10-PCS; 2021-12-23)
PROC: 5A1D70Z Performance of Urinary Filtration, Intermittent, Less than 6 Hours Per Day (ICD-10-PCS; 2021-12-25)
DX: A41.9 Sepsis, unspecified organism (principal); E11.10 Type 2 diabetes mellitus with ketoacidosis without coma; I21.4 Non-ST elevation (NSTEMI) myocardial infarction; N18.6 End stage renal disease; I50.43 Acute on chronic combined systolic (congestive) and diastolic (congestive) heart failure; G92.8 Other toxic encephalopathy; E44.1 Mild protein-calorie malnutrition; I13.2 Hypertensive heart and chronic kidney disease with heart failure and with stage 5 chronic kidney disease, or end stage renal disease; N25.81 Secondary hyperparathyroidism of renal origin; T82.855A Stenosis of coronary artery stent, initial encounter; I42.9 Cardiomyopathy, unspecified; T82.867A Thrombosis due to cardiac prosthetic devices, implants and grafts, initial encounter; I45.10 Unspecified right bundle-branch block; E78.00 Pure hypercholesterolemia, unspecified; F31.9 Bipolar disorder, unspecified; G54.6 Phantom limb syndrome with pain; G89.4 Chronic pain syndrome; M54.50 Low back pain, unspecified; E11.42 Type 2 diabetes mellitus with diabetic polyneuropathy; R26.9 Unspecified abnormalities of gait and mobility; E11.22 Type 2 diabetes mellitus with diabetic chronic kidney disease; E11.51 Type 2 diabetes mellitus with diabetic peripheral angiopathy without gangrene; I25.10 Atherosclerotic heart disease of native coronary artery without angina pectoris; Z20.822 Contact with and (suspected) exposure to COVID-19; R65.20 Severe sepsis without septic shock; Y83.1 Surgical operation with implant of artificial internal device as the cause of abnormal reaction of the patient, or of later complication, without mention of misadventure at the time of the procedure; Y92.89 Other specified places as the place of occurrence of the external cause; Z79.01 Long term (current) use of anticoagulants; Z86.711 Personal history of pulmonary embolism; Z86.73 Personal history of transient ischemic attack (TIA), and cerebral infarction without residual deficits; Z99.2 Dependence on renal dialysis; Z82.49 Family history of ischemic heart disease and other diseases of the circulatory system; Z83.3 Family history of diabetes mellitus; Z91.041 Radiographic dye allergy status; Z68.22 Body mass index [BMI] 22.0-22.9, adult; Z88.2 Allergy status to sulfonamides; Z88.1 Allergy status to other antibiotic agents; Z79.899 Other long term (current) drug therapy; I25.2 Old myocardial infarction; Z89.422 Acquired absence of other left toe(s); Z89.421 Acquired absence of other right toe(s); R53.81 Other malaise; D69.9 Hemorrhagic condition, unspecified
CPT/HCPCS: 36415; 36573; 36600; 71045; 74176; 80048; 80053; 80061; 80202; 80305; 80320; 81003; 82010; 82375; 82607; 82805; 82962; 83036; 83605; 83735; 84100; 84439; 84443; 84484; 85025; 85347; 86705; 86709; 86803; 87077; 87340; 87426; 92920; 92978; 93005; 93306; 93458; 93970; 97110; 97162; 97166; 97530; 97535; 99291; A6261; C1725; C1753; C1760; C1769; C1887; C1893; C9113; J1200; J1644; J1650; J1720; J1815; J2250; J2270; J2405; J2543; J2765; J3010; J3370; J3480; J3490; J7030; J7050; J7060; Q9967; G0480; J8499

== ENCOUNTER 2021-12-25 18:15 | Inpatient (IN) | payer MEDICARE, MEDICAID ==
[~2021-12-25] VITALS: Ht 167.6 cm; Wt 70.8 kg
[~2021-12-25 18:15] MED LIST changes: -AMLO10TA4 MT; +CETI-89 MT; +DICL100G31 TP; +DIVA500T3 MT; +DIVA500T3 PO; +DOCU-150 MT; -FURO-152 MT; -HYDR-3735 PO; -HYDR100T26 MT; +HYDR50TA55 MT; +INSU100V3 SUBCUT; -LOSA50TA3 PO; +POLY17PO3 MT; +SENN-257 MT; +SIME80TA15 MT; -SIMETHICONE PO; -nephrovite PO
[2021-12-25 19:00] VITALS: BP 129/40
[2021-12-25] MEDS ORDERED: ACETAMINOPHEN 325MG TABLET PO PRN ×2 (19:15)
[2021-12-25] MEDS ORDERED: MAGNESIUM/ALUMINUM HYDROXIDE/SIMETHICONE 30ML UDC PO PRN (19:15)
[2021-12-25] MEDS ORDERED: CLONIDINE 0.1MG TABLET PO PRN (19:15)
[2021-12-25] MEDS ORDERED: ATROPINE SULFATE 1MG/10ML SYR IV PRN (19:15)
[2021-12-25] MEDS ORDERED: IPRATROPIUM/ALBUTEROL 0.5-3(2.5)MG/3ML NEB HHN PRN (19:15)
[2021-12-25] MEDS ORDERED: NALOXONE HCL 0.4 MG/ML 1ML VIAL IV PRN (19:15)
[2021-12-25] MEDS ORDERED: DEXTROSE 50% WATER 50ML SYRINGE IV PRN ×2 (19:15)
[2021-12-25] MEDS: ATORVASTATIN CALCIUM 40MG TABLET PO SCH ×2 (21:04→21:11)
[2021-12-25] MEDS: BLOOD SUGAR DIAGNOSTIC STRIP TEST SCH (21:04)
[2021-12-25] MEDS: APIXABAN 2.5 MG TABLET PO SCH ×2 (21:04→21:11)
[2021-12-25] MEDS: TICAGRELOR 90 MG TABLET PO SCH ×2 (21:04→21:11)
[2021-12-25] MEDS: INSULIN LISPRO 100 UNITS/ML SUBCUT SCH (21:29)
[2021-12-25] MEDS: TRAMADOL 50MG TABLET PO PRN (21:30)
[2021-12-25] MEDS: INSULIN GLARGINE 100 UNITS/ML SUBCUT SCH (21:30)
[2021-12-25] MEDS: METHYL SALICYLATE/MENTHOL CREAM 85GM TOP SCH (23:22)
[2021-12-26] MEDS: ZOLPIDEM TARTRATE 5MG TABLET PO PRN ×2 (00:23→23:41)
[2021-12-26] MEDS: METHYL SALICYLATE/MENTHOL CREAM 85GM TOP SCH ×4 (06:18→23:41)
[2021-12-26] MEDS: METOCLOPRAMIDE HCL 10MG/2ML VIAL IV SCH ×3 (06:18→17:12)
[2021-12-26] MEDS: BLOOD SUGAR DIAGNOSTIC STRIP TEST SCH ×4 (06:18→21:40)
[2021-12-26] MEDS: GUAIFENESIN 200MG/10ML SUGAR FREE UDC PO PRN ×2 (06:31→23:52)
[2021-12-26] MEDS: INSULIN LISPRO 100 UNITS/ML SUBCUT SCH ×7 (06:32→21:37)
[2021-12-26 07:32] LABS: BASOPHILS % 1.3 % (0.0-2.0); EOSINOPHILS % 3.4 % (0.0-5.0); HEMOGLOBIN. 12.5 g/dL (12.0-16.0); LYMPHOCYTES % 36.3 % (20.0-50.0); MEAN CORPUSCULAR HEMOGLOBIN 30.6 pg (28.0-32.0); MEAN CORPUSCULAR VOLUME 92.7 fL (81.0-99.0); MEAN PLATELET VOLUME 9.7 fl (7.4-10.4); MONOCYTES % 10.2 % (2.0-8.0); NEUTROPHILS % 48.8 % (40.0-76.0); PLATELET 152 x1000/uL (130-400); RED CELL DISTRIBUTION WIDTH 18.2 % (11.6-14.6)
[2021-12-26 07:53] LABS: CHLORIDE 103 mEq/L (98-107)
[2021-12-26 08:00] VITALS: BP 167/64
[2021-12-26] MEDS: ASPIRIN 81MG TABLET PO SCH (08:56)
[2021-12-26] MEDS: LIDOCAINE 5% PATCH TOP SCH (08:56)
[2021-12-26] MEDS ORDERED: FAMOTIDINE 20MG/2ML VIAL IV SCH (09:00)
[2021-12-26] MEDS: TRAMADOL 50MG TABLET PO PRN ×2 (10:45→20:09)
[2021-12-26 12:00] VITALS: BP 145/64
[2021-12-26 16:00] VITALS: BP 125/64
[2021-12-26] MEDS: ONDANSETRON HCL 4MG/2ML INJ IV PRN (17:12)
[2021-12-26] MEDS: APIXABAN 2.5 MG TABLET PO SCH (17:13)
[2021-12-26] MEDS: TICAGRELOR 90 MG TABLET PO SCH (17:13)
[2021-12-26 20:00] VITALS: BP 147/64
[2021-12-26] MEDS: INSULIN GLARGINE 100 UNITS/ML SUBCUT SCH (21:35)
[2021-12-27] MEDS: ONDANSETRON HCL 4MG/2ML INJ IV PRN ×2 (00:14→18:13)
[2021-12-27] MEDS: BLOOD SUGAR DIAGNOSTIC STRIP TEST SCH ×4 (06:19→21:51)
[2021-12-27] MEDS: INSULIN LISPRO 100 UNITS/ML SUBCUT SCH ×8 (06:22→18:04)
[2021-12-27] MEDS: METOCLOPRAMIDE HCL 10MG/2ML VIAL IV SCH ×3 (06:28→17:00)
[2021-12-27] MEDS: METHYL SALICYLATE/MENTHOL CREAM 85GM TOP SCH ×4 (06:28→23:48)
[2021-12-27 08:00] VITALS: BP 149/67
[2021-12-27 08:15] LABS: BASOPHILS % 1.3 % (0.0-2.0); EOSINOPHILS % 3.9 % (0.0-5.0); HEMATOCRIT. 37.6 % (36.0-48.0); HEMOGLOBIN. 12.6 g/dL (12.0-16.0); LYMPHOCYTES % 41.3 % (20.0-50.0); MEAN CORPUSCULAR VOLUME 92.6 fL (81.0-99.0); MEAN PLATELET VOLUME 9.8 fl (7.4-10.4); MONOCYTES % 8.3 % (2.0-8.0); NEUTROPHILS % 45.2 % (40.0-76.0); PLATELET 158 x1000/uL (130-400); RED BLOOD CELL COUNT 4.06 mill/uL (4.2-5.4); RED CELL DISTRIBUTION WIDTH 18.1 % (11.6-14.6)
[2021-12-27 08:43] LABS: FERRITIN 446 ng/mL (10-291)
[2021-12-27 08:55] LABS: FOLIC ACID (FOLATE) SERUM > 20.00 ng/mL (>5.38); VITAMIN B12 SERUM > 2000.0 pg/mL (211-911)
[2021-12-27] MEDS: LIDOCAINE 5% PATCH TOP SCH (09:37)
[2021-12-27] MEDS: APIXABAN 2.5 MG TABLET PO SCH ×2 (09:37→17:36)
[2021-12-27] MEDS: ASPIRIN 81MG TABLET PO SCH (09:37)
[2021-12-27] MEDS: TICAGRELOR 90 MG TABLET PO SCH ×2 (09:37→17:36)
[2021-12-27] MEDS: HYDROCODONE/ACETAMINOPHEN 5/325MG TABLET PO PRN ×2 (09:37→17:36)
[2021-12-27] MEDS: FAMOTIDINE 20MG TABLET PO SCH (09:37)
[2021-12-27 12:00] VITALS: BP 128/63
[2021-12-27 16:00] VITALS: BP 113/65
[2021-12-27 20:00] VITALS: BP 146/34
[2021-12-27] MEDS: PREGABALIN 50 MG CAPSULE PO SCH (21:55)
[2021-12-27] MEDS: ATORVASTATIN CALCIUM 40MG TABLET PO SCH (21:55)
[2021-12-27] MEDS ORDERED: INSULIN GLARGINE 100 UNITS/ML SUBCUT SCH (22:00)
[2021-12-27] MEDS: ZOLPIDEM TARTRATE 5MG TABLET PO PRN (23:48)
[2021-12-28] MEDS: HYDROCODONE/ACETAMINOPHEN 5/325MG TABLET PO PRN ×4 (03:27→23:30)
[2021-12-28] MEDS: METOCLOPRAMIDE HCL 10MG/2ML VIAL IV SCH ×3 (06:39→16:12)
[2021-12-28] MEDS: INSULIN LISPRO 100 UNITS/ML SUBCUT SCH ×6 (06:39→17:00)
[2021-12-28] MEDS: METHYL SALICYLATE/MENTHOL CREAM 85GM TOP SCH ×4 (06:48→23:30)
[2021-12-28] MEDS: BLOOD SUGAR DIAGNOSTIC STRIP TEST SCH ×4 (06:48→21:12)
[2021-12-28 07:48] LABS: BASOPHILS % 0.8 % (0.0-2.0); EOSINOPHILS % 2.3 % (0.0-5.0); HEMATOCRIT. 34.5 % (36.0-48.0); HEMOGLOBIN. 11.4 g/dL (12.0-16.0); LYMPHOCYTES % 29.2 % (20.0-50.0); MEAN CORPUSCULAR HEMOGLOBIN 30.4 pg (28.0-32.0); MEAN CORPUSCULAR VOLUME 91.7 fL (81.0-99.0); MEAN PLATELET VOLUME 9.8 fl (7.4-10.4); MONOCYTES % 10.6 % (2.0-8.0); NEUTROPHILS % 57.1 % (40.0-76.0); PLATELET 139 x1000/uL (130-400); RED BLOOD CELL COUNT 3.76 mill/uL (4.2-5.4)
[2021-12-28 07:55] VITALS: BP 128/57
[2021-12-28 08:08] LABS: PHOSPHORUS 2.6 mg/dL (2.5-4.9)
[2021-12-28] MEDS: FAMOTIDINE 20MG TABLET PO SCH (08:40)
[2021-12-28] MEDS: ASPIRIN 81MG TABLET PO SCH (08:40)
[2021-12-28] MEDS: TICAGRELOR 90 MG TABLET PO SCH ×2 (08:40→17:00)
[2021-12-28] MEDS: LIDOCAINE 5% PATCH TOP SCH (08:40)
[2021-12-28] MEDS: PREGABALIN 50 MG CAPSULE PO SCH ×2 (08:40→21:13)
[2021-12-28] MEDS: APIXABAN 2.5 MG TABLET PO SCH ×2 (08:40→17:00)
[2021-12-28 12:00] VITALS: BP 138/57
[2021-12-28 16:00] VITALS: BP 140/84
[2021-12-28] MEDS ORDERED: INSULIN LISPRO 100 UNITS/ML SUBCUT SCH (17:00)
[2021-12-28 20:41] VITALS: BP 151/76
[2021-12-28] MEDS: ATORVASTATIN CALCIUM 40MG TABLET PO SCH (21:14)
[2021-12-28] MEDS: ONDANSETRON HCL 4MG/2ML INJ IV PRN (21:27)
[2021-12-28] MEDS ORDERED: INSULIN GLARGINE 100 UNITS/ML SUBCUT SCH (22:00)
[2021-12-28] MEDS: ZOLPIDEM TARTRATE 5MG TABLET PO PRN (23:29)
[2021-12-29] MEDS: METHYL SALICYLATE/MENTHOL CREAM 85GM TOP SCH ×3 (06:09→17:36)
[2021-12-29] MEDS: METOCLOPRAMIDE HCL 10MG/2ML VIAL IV SCH ×3 (06:10→17:37)
[2021-12-29] MEDS: INSULIN LISPRO 100 UNITS/ML SUBCUT SCH ×6 (06:15→17:44)
[2021-12-29] MEDS: BLOOD SUGAR DIAGNOSTIC STRIP TEST SCH ×4 (06:15→21:00)
[2021-12-29 07:59] VITALS: BP 133/67
[2021-12-29 08:24] LABS: BASOPHILS % 0.7 % (0.0-2.0); EOSINOPHILS % 2.2 % (0.0-5.0); HEMATOCRIT. 35.7 % (36.0-48.0); HEMOGLOBIN. 11.7 g/dL (12.0-16.0); LYMPHOCYTES % 35.8 % (20.0-50.0); MEAN CORPUSCULAR HEMOGLOBIN 30.4 pg (28.0-32.0); MEAN CORPUSCULAR VOLUME 92.6 fL (81.0-99.0); MEAN PLATELET VOLUME 9.7 fl (7.4-10.4); MONOCYTES % 12.4 % (2.0-8.0); NEUTROPHILS % 48.9 % (40.0-76.0); PLATELET 147 x1000/uL (130-400); RED BLOOD CELL COUNT 3.85 mill/uL (4.2-5.4); RED CELL DISTRIBUTION WIDTH 18.1 % (11.6-14.6)
[2021-12-29 08:39] LABS: PHOSPHORUS 2.7 mg/dL (2.5-4.9)
[2021-12-29] MEDS: APIXABAN 2.5 MG TABLET PO SCH ×2 (08:40→17:36)
[2021-12-29] MEDS: LIDOCAINE 5% PATCH TOP SCH (08:40)
[2021-12-29] MEDS: FAMOTIDINE 20MG TABLET PO SCH (08:40)
[2021-12-29] MEDS: TICAGRELOR 90 MG TABLET PO SCH ×2 (08:40→17:36)
[2021-12-29] MEDS: ASPIRIN 81MG TABLET PO SCH (08:40)
[2021-12-29] MEDS: PREGABALIN 50 MG CAPSULE PO SCH ×2 (08:40→21:36)
[2021-12-29 16:00] VITALS: BP 157/52
[2021-12-29] MEDS: HYDROCODONE/ACETAMINOPHEN 5/325MG TABLET PO PRN (17:46)
[2021-12-29 20:00] VITALS: BP 133/48
[2021-12-29] MEDS: ZOLPIDEM TARTRATE 5MG TABLET PO PRN (21:36)
[2021-12-29] MEDS: ONDANSETRON HCL 4MG/2ML INJ IV PRN (21:36)
[2021-12-29] MEDS: ATORVASTATIN CALCIUM 40MG TABLET PO SCH (21:36)
[2021-12-29] MEDS ORDERED: INSULIN GLARGINE 100 UNITS/ML SUBCUT SCH (22:00)
[2021-12-30] MEDS: BLOOD SUGAR DIAGNOSTIC STRIP TEST SCH ×4 (06:13→21:00)
[2021-12-30] MEDS: METHYL SALICYLATE/MENTHOL CREAM 85GM TOP SCH ×3 (06:13→17:55)
[2021-12-30] MEDS: METOCLOPRAMIDE HCL 10MG/2ML VIAL IV SCH ×3 (06:13→17:31)
[2021-12-30 06:42] LABS: BASOPHILS % 0.9 % (0.0-2.0); EOSINOPHILS % 3.6 % (0.0-5.0); HEMATOCRIT. 33.6 % (36.0-48.0); HEMOGLOBIN. 11.3 g/dL (12.0-16.0); LYMPHOCYTES % 41.9 % (20.0-50.0); MEAN CORPUSCULAR HEMOGLOBIN 30.9 pg (28.0-32.0); MEAN CORPUSCULAR VOLUME 92.1 fL (81.0-99.0); MEAN PLATELET VOLUME 9.3 fl (7.4-10.4); MONOCYTES % 11.3 % (2.0-8.0); NEUTROPHILS % 42.3 % (40.0-76.0); PLATELET 143 x1000/uL (130-400); RED BLOOD CELL COUNT 3.65 mill/uL (4.2-5.4); RED CELL DISTRIBUTION WIDTH 18.4 % (11.6-14.6)
[2021-12-30 06:56] LABS: PHOSPHORUS 2.9 mg/dL (2.5-4.9)
[2021-12-30] MEDS: INSULIN LISPRO 100 UNITS/ML SUBCUT SCH ×6 (07:00→17:53)
[2021-12-30 08:00] VITALS: BP 136/69
[2021-12-30] MEDS: PREGABALIN 50 MG CAPSULE PO SCH ×2 (08:45→22:51)
[2021-12-30] MEDS: FAMOTIDINE 20MG TABLET PO SCH (08:45)
[2021-12-30] MEDS: APIXABAN 2.5 MG TABLET PO SCH ×2 (08:45→17:32)
[2021-12-30] MEDS: TICAGRELOR 90 MG TABLET PO SCH ×2 (08:45→17:32)
[2021-12-30] MEDS: ASPIRIN 81MG TABLET PO SCH (08:46)
[2021-12-30] MEDS: LIDOCAINE 5% PATCH TOP SCH (08:46)
[2021-12-30] MEDS: DOCUSATE SODIUM 100MG CAPSULE PO PRN (17:31)
[2021-12-30] MEDS ORDERED: INSULIN GLARGINE 100 UNITS/ML SUBCUT SCH (22:00)
[2021-12-30] MEDS: ATORVASTATIN CALCIUM 40MG TABLET PO SCH (22:51)
[2021-12-31] MEDS: METHYL SALICYLATE/MENTHOL CREAM 85GM TOP SCH ×5 (06:00→23:16)
[2021-12-31 06:21] LABS: BASOPHILS % 0.8 % (0.0-2.0); EOSINOPHILS % 2.1 % (0.0-5.0); HEMATOCRIT. 33.2 % (36.0-48.0); LYMPHOCYTES % 30.1 % (20.0-50.0); MEAN CORPUSCULAR HEMOGLOBIN 30.9 pg (28.0-32.0); MEAN CORPUSCULAR VOLUME 93.2 fL (81.0-99.0); MEAN PLATELET VOLUME 9.7 fl (7.4-10.4); MONOCYTES % 10.8 % (2.0-8.0); NEUTROPHILS % 56.2 % (40.0-76.0); PLATELET 138 x1000/uL (130-400); RED BLOOD CELL COUNT 3.57 mill/uL (4.2-5.4); RED CELL DISTRIBUTION WIDTH 18.2 % (11.6-14.6)
[2021-12-31 06:27] LABS: PHOSPHORUS 2.9 mg/dL (2.5-4.9)
[2021-12-31] MEDS: BLOOD SUGAR DIAGNOSTIC STRIP TEST SCH ×4 (06:30→21:45)
[2021-12-31] MEDS: METOCLOPRAMIDE HCL 10MG/2ML VIAL IV SCH ×3 (06:32→17:25)
[2021-12-31] MEDS: INSULIN LISPRO 100 UNITS/ML SUBCUT SCH ×6 (06:59→17:48)
[2021-12-31 07:55] VITALS: BP 163/50
[2021-12-31] MEDS: TICAGRELOR 90 MG TABLET PO SCH ×2 (08:57→17:26)
[2021-12-31] MEDS: PREGABALIN 50 MG CAPSULE PO SCH ×2 (08:57→21:45)
[2021-12-31] MEDS: APIXABAN 2.5 MG TABLET PO SCH ×2 (08:57→17:26)
[2021-12-31] MEDS: ASPIRIN 81MG TABLET PO SCH (08:57)
[2021-12-31] MEDS: FAMOTIDINE 20MG TABLET PO SCH (08:57)
[2021-12-31] MEDS: LIDOCAINE 5% PATCH TOP SCH (08:58)
[2021-12-31] MEDS ORDERED: SODIUM POLYSTYRENE SULFONATE 15 G/60 ML BOT PO NR (09:00)
[2021-12-31] MEDS: ONDANSETRON HCL 4MG/2ML INJ IV PRN (09:19)
[2021-12-31] MEDS: DOCUSATE SODIUM 100MG CAPSULE PO PRN ×2 (17:27→22:00)
[2021-12-31 20:00] VITALS: BP 139/37
[2021-12-31] MEDS: ATORVASTATIN CALCIUM 40MG TABLET PO SCH (21:45)
[2021-12-31] MEDS: INSULIN GLARGINE 100 UNITS/ML SUBCUT SCH (21:51)
[2021-12-31] MEDS: HYDROCODONE/ACETAMINOPHEN 5/325MG TABLET PO PRN (22:00)
[2021-12-31] MEDS: ZOLPIDEM TARTRATE 5MG TABLET PO PRN (22:31)
[2022-01-01] MEDS: METHYL SALICYLATE/MENTHOL CREAM 85GM TOP SCH ×4 (06:08→23:29)
[2022-01-01] MEDS: METOCLOPRAMIDE HCL 10MG/2ML VIAL IV SCH ×3 (06:09→17:26)
[2022-01-01] MEDS: BLOOD SUGAR DIAGNOSTIC STRIP TEST SCH ×4 (06:19→21:26)
[2022-01-01] MEDS: INSULIN LISPRO 100 UNITS/ML SUBCUT SCH ×6 (06:20→17:00)
[2022-01-01] MEDS: DOCUSATE SODIUM 100MG CAPSULE PO PRN (06:21)
[2022-01-01 06:58] LABS: BASOPHILS % 0.8 % (0.0-2.0); EOSINOPHILS % 3.4 % (0.0-5.0); HEMATOCRIT. 33.7 % (36.0-48.0); HEMOGLOBIN. 11.1 g/dL (12.0-16.0); LYMPHOCYTES % 43.5 % (20.0-50.0); MEAN CORPUSCULAR HEMOGLOBIN 30.4 pg (28.0-32.0); MEAN CORPUSCULAR VOLUME 92.7 fL (81.0-99.0); MEAN PLATELET VOLUME 9.2 fl (7.4-10.4); MONOCYTES % 10.6 % (2.0-8.0); NEUTROPHILS % 41.7 % (40.0-76.0); PLATELET 146 x1000/uL (130-400); RED BLOOD CELL COUNT 3.64 mill/uL (4.2-5.4); RED CELL DISTRIBUTION WIDTH 18.3 % (11.6-14.6)
[2022-01-01 07:17] LABS: PHOSPHORUS 3.3 mg/dL (2.5-4.9)
[2022-01-01 07:54] VITALS: BP 153/94
[2022-01-01] MEDS ORDERED: BISACODYL 5MG TABLET PO PRN (08:15)
[2022-01-01] MEDS: ASPIRIN 81MG TABLET PO SCH (08:42)
[2022-01-01] MEDS: FAMOTIDINE 20MG TABLET PO SCH (08:42)
[2022-01-01] MEDS: PREGABALIN 50 MG CAPSULE PO SCH ×2 (08:44→21:33)
[2022-01-01] MEDS: HYDROCODONE/ACETAMINOPHEN 5/325MG TABLET PO PRN ×3 (08:44→21:35)
[2022-01-01] MEDS: APIXABAN 2.5 MG TABLET PO SCH ×2 (08:45→16:59)
[2022-01-01] MEDS: LIDOCAINE 5% PATCH TOP SCH (08:46)
[2022-01-01] MEDS: TICAGRELOR 90 MG TABLET PO SCH ×2 (08:46→16:59)
[2022-01-01] MEDS ORDERED: APIX2.5T PO (10:51)
[2022-01-01] MEDS ORDERED: LANTUSUD SUBCUT (10:51)
[2022-01-01] MEDS ORDERED: INSLIS SUBCUT (10:51)
[2022-01-01] MEDS ORDERED: TICA90TA PO (10:51)
[2022-01-01] MEDS ORDERED: LIP40 PO (10:51)
[2022-01-01 15:06] LABS: 25-HYDROXY VITAMIN D3 40 ng/mL (.)
[2022-01-01 20:00] VITALS: BP 151/42
[2022-01-01] MEDS: ATORVASTATIN CALCIUM 40MG TABLET PO SCH (21:24)
[2022-01-01] MEDS: INSULIN GLARGINE 100 UNITS/ML SUBCUT SCH (21:38)
[2022-01-01] MEDS: ZOLPIDEM TARTRATE 5MG TABLET PO PRN (22:08)
[2022-01-02] MEDS: BLOOD SUGAR DIAGNOSTIC STRIP TEST SCH ×2 (05:50→12:05)
[2022-01-02] MEDS: METHYL SALICYLATE/MENTHOL CREAM 85GM TOP SCH ×2 (06:11→12:00)
[2022-01-02] MEDS: METOCLOPRAMIDE HCL 10MG/2ML VIAL IV SCH (06:11)
[2022-01-02] MEDS: INSULIN LISPRO 100 UNITS/ML SUBCUT SCH ×4 (07:00→12:35)
[2022-01-02 08:00] VITALS: BP 139/43
[2022-01-02] MEDS: DOCUSATE SODIUM 100MG CAPSULE PO PRN (09:43)
[2022-01-02] MEDS: ASPIRIN 81MG TABLET PO SCH (09:43)
[2022-01-02] MEDS: FAMOTIDINE 20MG TABLET PO SCH (09:44)
[2022-01-02] MEDS: APIXABAN 2.5 MG TABLET PO SCH (09:45)
[2022-01-02] MEDS: LIDOCAINE 5% PATCH TOP SCH (09:46)
[2022-01-02] MEDS: TICAGRELOR 90 MG TABLET PO SCH (09:53)
[2022-01-02] MEDS: HYDROCODONE/ACETAMINOPHEN 5/325MG TABLET PO PRN (09:55)
[2022-01-02] MEDS: PREGABALIN 50 MG CAPSULE PO SCH (10:04)
[2022-01-02 10:46] VITALS: BP 139/43
[2022-01-02 11:49] VITALS: BP 130/54
[2022-01-02] MEDS: TRAMADOL 50MG TABLET PO PRN (11:49)
[2022-01-02] MEDS ORDERED: LIDOCAINE 5% PATCH TOP SCH (12:15)
== END 2022-01-02 13:10 | disposition home health service (06) | DRG 70 ==
PROVIDERS: ADMIT Physical Medicine & Rehabilitation Spinal Cord Injury Medicine; ATTEND Internal Medicine
PROC: 5A1D70Z Performance of Urinary Filtration, Intermittent, Less than 6 Hours Per Day (ICD-10-PCS; principal; 2021-12-27)
PROC: 5A1D70Z Performance of Urinary Filtration, Intermittent, Less than 6 Hours Per Day (ICD-10-PCS; 2021-12-29)
PROC: 5A1D70Z Performance of Urinary Filtration, Intermittent, Less than 6 Hours Per Day (ICD-10-PCS; 2021-12-31)
DX: G93.41 Metabolic encephalopathy (principal); E10.10 Type 1 diabetes mellitus with ketoacidosis without coma; A41.9 Sepsis, unspecified organism; R65.20 Severe sepsis without septic shock; N18.6 End stage renal disease; I21.4 Non-ST elevation (NSTEMI) myocardial infarction; E46 Unspecified protein-calorie malnutrition; I13.2 Hypertensive heart and chronic kidney disease with heart failure and with stage 5 chronic kidney disease, or end stage renal disease; I42.9 Cardiomyopathy, unspecified; E04.1 Nontoxic single thyroid nodule; E10.22 Type 1 diabetes mellitus with diabetic chronic kidney disease; E78.00 Pure hypercholesterolemia, unspecified; E78.5 Hyperlipidemia, unspecified; M51.16 Intervertebral disc disorders with radiculopathy, lumbar region; M47.26 Other spondylosis with radiculopathy, lumbar region; K44.9 Diaphragmatic hernia without obstruction or gangrene; I50.9 Heart failure, unspecified; I25.10 Atherosclerotic heart disease of native coronary artery without angina pectoris; I27.20 Pulmonary hypertension, unspecified; F31.70 Bipolar disorder, currently in remission, most recent episode unspecified; R26.9 Unspecified abnormalities of gait and mobility; G89.4 Chronic pain syndrome; Z99.2 Dependence on renal dialysis; Z87.891 Personal history of nicotine dependence; Z86.711 Personal history of pulmonary embolism; Z83.3 Family history of diabetes mellitus; Z82.49 Family history of ischemic heart disease and other diseases of the circulatory system; Z79.4 Long term (current) use of insulin; Z56.0 Unemployment, unspecified; Z88.8 Allergy status to other drugs, medicaments and biological substances; Z88.2 Allergy status to sulfonamides; R53.81 Other malaise
CPT/HCPCS: 36415; 80048; 80053; 82306; 82607; 82728; 82746; 82962; 83540; 83550; 83735; 84100; 84134; 84443; 85025; 92523; 93970; 97110; 97112; 97116; 97162; 97166; 97530; 97535; C1893; J1815; J2405; J2765; J3490; J8499

== ENCOUNTER 2022-08-30 05:13 | Inpatient (IN) | payer MEDICARE, MEDICAID ==
[~2022-08-30] VITALS: Ht 167.6 cm; Wt 66.4 kg
[2022-08-30] VITALS (16 sets, daily range): BP systolic 132–166; BP diastolic 68–97
[2022-08-30 05:56] LABS: BASOPHILS % 1.3 % (0.0-2.0); EOSINOPHILS % 5.6 % (0.0-5.0); HEMATOCRIT. 36.1 % (36.0-48.0); HEMOGLOBIN. 12.2 g/dL (12.0-16.0); LYMPHOCYTES % 26.9 % (20.0-50.0); MEAN CORPUSCULAR HEMOGLOBIN 32.4 pg (28.0-32.0); MEAN CORPUSCULAR VOLUME 96.1 fL (81.0-99.0); MONOCYTES % 9.2 % (2.0-8.0); PLATELET 165 x1000/uL (130-400); RED BLOOD CELL COUNT 3.75 mill/uL (4.2-5.4); RED CELL DISTRIBUTION WIDTH 13.9 % (11.6-14.6)
[2022-08-30 06:04] LABS: CHLORIDE 102 mEq/L (98-107)
[2022-08-30 07:18] LABS: HCG SCREEN NEGATIVE
[2022-08-30] MEDS ORDERED: LEVOFLOXACIN 750MG PREMIX 150 ML IV ONE (08:30)
[2022-08-30] MEDS ORDERED: METRONIDAZOLE 500 MG PREMIX 100 ML IV ONE (08:30)
[2022-08-30] MEDS ORDERED: DEXTROSE 50% WATER 50ML SYRINGE IV PRN (09:30)
[2022-08-30] MEDS ORDERED: GUAIFENESIN 200MG/10ML SUGAR FREE UDC PO PRN (09:30)
[2022-08-30] MEDS ORDERED: ACETAMINOPHEN 325MG TABLET PO PRN ×2 (09:30)
[2022-08-30] MEDS ORDERED: ENOXAPARIN 40MG/0.4ML SYR SUBCUT SCH (09:30)
[2022-08-30] MEDS ORDERED: CLONIDINE 0.1MG TABLET PO PRN (09:30)
[2022-08-30] MEDS ORDERED: DOCUSATE SODIUM 100MG CAPSULE PO PRN (09:30)
[2022-08-30] MEDS ORDERED: IPRATROPIUM/ALBUTEROL 0.5-3(2.5)MG/3ML NEB HHN PRN (09:30)
[2022-08-30] MEDS ORDERED: ONDANSETRON HCL 4MG/2ML INJ IV PRN ×2 (09:30→21:15)
[2022-08-30] MEDS ORDERED: IPRATROPIUM BROMIDE (0.02%) 0.5MG/2.5ML NEB HHN PRN (10:00)
[2022-08-30] MEDS ORDERED: ALBUTEROL (0.083%) 2.5MG/3ML NEB HHN PRN (10:00)
[2022-08-30] MEDS ORDERED: NITROGLYCERIN 0.4MG TABLET SL SL PRN (10:15)
[2022-08-30] MEDS: TRAMADOL 50MG TABLET PO PRN ×2 (11:14→20:37)
[2022-08-30] MEDS: PANTOPRAZOLE 40MG DR TABLET PO SCH (11:15)
[2022-08-30] MEDS: CLOPIDOGREL 75MG TABLET PO SCH (11:15)
[2022-08-30] MEDS: FUROSEMIDE 40MG TABLET PO SCH (11:15)
[2022-08-30] MEDS: APIXABAN 2.5 MG TABLET PO SCH ×2 (11:15→17:00)
[2022-08-30] MEDS: NIFEDIPINE XL 30MG TAB PO SCH (11:16)
[2022-08-30] MEDS: INSULIN LISPRO 100 UNITS/ML SUBCUT SCH ×3 (13:25→20:26)
[2022-08-30] MEDS: BLOOD SUGAR DIAGNOSTIC STRIP TEST SCH ×3 (13:26→20:26)
[2022-08-30] MEDS: PROCHLORPERAZINE 10MG/2ML VIAL IV PRN (14:17)
[2022-08-30] MEDS ORDERED: NALOXONE HCL 0.4MG/ML VIAL IV PRN (15:00)
[2022-08-30 15:54] LABS: CREATINE KINASE MB FRACTION 1.2 ng/mL (0.5-3.6)
[2022-08-30] MEDS: ISOSORBIDE MONONITRATE 30MG TABLET SR 24HR PO SCH (17:15)
[2022-08-30 17:51] LABS: HEPATITIS B SURFACE ANTIGEN NEGATIVE
[2022-08-30] MEDS ORDERED: CEFTRIAXONE 1 G PREMIX 50 ML IV SCH (18:00)
[2022-08-30] MEDS ORDERED: PARO-41 PO (20:17)
[2022-08-30] MEDS ORDERED: SIME80TA15 PO (20:19)
[2022-08-30] MEDS ORDERED: HYDR-4001 PO (20:21)
[2022-08-30] MEDS: CEFTRIAXONE 1,000 MG in DEXTROSE 5% WATER 50 ML IV SCH (20:36)
[2022-08-30] MEDS: METRONIDAZOLE 500 MG PREMIX 100 ML IV SCH (20:37)
[2022-08-30] MEDS: CARVEDILOL 6.25 MG TABLET PO SCH (20:38)
[2022-08-30] MEDS: LACTULOSE 20G/30ML UDC PO SCH (20:38)
[2022-08-30] MEDS: PREGABALIN 50 MG CAPSULE PO SCH (20:38)
[2022-08-30] MEDS: ATORVASTATIN CALCIUM 10MG TABLET PO SCH (20:39)
[2022-08-30] MEDS: INSULIN GLARGINE 100 UNITS/ML SUBCUT SCH (22:00)
[2022-08-30] MEDS ORDERED: INSU100V37 SQ (22:05)
[2022-08-30] MEDS ORDERED: GLUC3SPR NS (22:05)
[2022-08-30] MEDS ORDERED: NITR0.4T49 SL (22:05)
[2022-08-30] MEDS ORDERED: CRES10 PO (22:05)
[2022-08-30] MEDS ORDERED: HYDR-459 MT (22:05)
[2022-08-30] MEDS ORDERED: FURO40TA5 PO (22:05)
[2022-08-30] MEDS ORDERED: BENZ100C86 MT (22:05)
[2022-08-30] MEDS ORDERED: BUPR1PAT2 TP (22:05)
[2022-08-30] MEDS ORDERED: ONDA4TAB50 MT (22:05)
[2022-08-30] MEDS ORDERED: HYPR15DR4 EACHEYE (22:05)
[2022-08-30 23:59] LABS: CREATINE KINASE MB FRACTION 1.3 ng/mL (0.5-3.6)
[2022-08-31] VITALS: BP 143/49
[2022-08-31 04:00] VITALS: BP 141/50
[2022-08-31] MEDS: PROCHLORPERAZINE 10MG/2ML VIAL IV PRN (04:24)
[2022-08-31] MEDS: BLOOD SUGAR DIAGNOSTIC STRIP TEST SCH ×4 (06:40→21:34)
[2022-08-31 07:22] LABS: BASOPHILS % 0.9 % (0.0-2.0); EOSINOPHILS % 4.6 % (0.0-5.0); HEMATOCRIT. 35.8 % (36.0-48.0); HEMOGLOBIN. 11.9 g/dL (12.0-16.0); MEAN CORPUSCULAR HEMOGLOBIN 32.2 pg (28.0-32.0); MEAN CORPUSCULAR VOLUME 97.4 fL (81.0-99.0); MEAN PLATELET VOLUME 10.9 fl (7.4-10.4); MONOCYTES % 7.3 % (2.0-8.0); NEUTROPHILS % 69.2 % (40.0-76.0); PLATELET 151 x1000/uL (130-400); RED BLOOD CELL COUNT 3.68 mill/uL (4.2-5.4); RED CELL DISTRIBUTION WIDTH 14.1 % (11.6-14.6)
[2022-08-31] MEDS: APIXABAN 2.5 MG TABLET PO SCH ×2 (08:57→17:08)
[2022-08-31] MEDS: LACTULOSE 20G/30ML UDC PO SCH ×2 (08:58→21:33)
[2022-08-31] MEDS: PREGABALIN 50 MG CAPSULE PO SCH ×2 (08:58→21:33)
[2022-08-31] MEDS: ISOSORBIDE MONONITRATE 30MG TABLET SR 24HR PO SCH (08:58)
[2022-08-31] MEDS: NIFEDIPINE XL 30MG TAB PO SCH (08:58)
[2022-08-31] MEDS: FUROSEMIDE 40MG TABLET PO SCH (08:58)
[2022-08-31] MEDS: CARVEDILOL 6.25 MG TABLET PO SCH ×2 (08:58→21:33)
[2022-08-31] MEDS: PANTOPRAZOLE 40MG DR TABLET PO SCH (08:59)
[2022-08-31] MEDS: DOCUSATE SODIUM 100MG CAPSULE PO SCH (08:59)
[2022-08-31] MEDS: METRONIDAZOLE 500 MG PREMIX 100 ML IV SCH ×2 (08:59→21:34)
[2022-08-31] MEDS: CLOPIDOGREL 75MG TABLET PO SCH (09:06)
[2022-08-31] MEDS: INSULIN LISPRO 100 UNITS/ML SUBCUT SCH ×4 (09:12→21:46)
[2022-08-31 12:00] VITALS: BP 136/66
[2022-08-31 15:07] LABS: CHLORIDE 97 mEq/L (98-107)
[2022-08-31 15:08] LABS: VITAMIN B12 SERUM 1920 pg/mL (211-911)
[2022-08-31 15:48] LABS: HDL CHOLESTEROL 71 mg/dL (40-59); LDL CHOLESTEROL 109 mg/dL (5-100); PHOSPHORUS 3.1 mg/dL (2.5-4.9); T4 FREE 1.68 ng/dL (0.76-1.46)
[2022-08-31 16:00] VITALS: BP_SYST 144; BP_SYST 148; BP_DIAS 75; BP_DIAS 95
[2022-08-31] MEDS: MORPHINE SULFATE 2 MG/ML CPJ (NOT FOR IM USE) IV PRN ×2 (17:05→19:13)
[2022-08-31] MEDS: CEFTRIAXONE 1,000 MG in DEXTROSE 5% WATER 50 ML IV SCH (19:23)
[2022-08-31] MEDS ORDERED: CHOL200016 PO (19:52)
[2022-08-31] MEDS ORDERED: SENN-257 PO (19:57)
[2022-08-31 20:00] VITALS: BP 112/60
[2022-08-31] MEDS ORDERED: SEVE800T8 PO (20:00)
[2022-08-31] MEDS ORDERED: MIRT-89 PO (20:02)
[2022-08-31] MEDS ORDERED: INSU100I28 SQ (20:10)
[2022-08-31] MEDS ORDERED: PREG50CA63 PO (20:12)
[2022-08-31] MEDS: ATORVASTATIN CALCIUM 10MG TABLET PO SCH (21:33)
[2022-08-31] MEDS: INSULIN GLARGINE 100 UNITS/ML SUBCUT SCH (21:46)
[2022-09-01] VITALS: BP 117/68
[2022-09-01] MEDS: MORPHINE SULFATE 2 MG/ML CPJ (NOT FOR IM USE) IV PRN ×3 (00:49→15:49)
[2022-09-01 04:00] VITALS: BP 126/67
[2022-09-01] MEDS: BLOOD SUGAR DIAGNOSTIC STRIP TEST SCH ×4 (06:40→21:55)
[2022-09-01 07:16] LABS: BASOPHILS % 1.1 % (0.0-2.0); EOSINOPHILS % 5.8 % (0.0-5.0); HEMATOCRIT. 33.7 % (36.0-48.0); HEMOGLOBIN. 11.3 g/dL (12.0-16.0); LYMPHOCYTES % 23.7 % (20.0-50.0); MEAN CORPUSCULAR HEMOGLOBIN 32.4 pg (28.0-32.0); MEAN CORPUSCULAR VOLUME 96.4 fL (81.0-99.0); MEAN PLATELET VOLUME 10.5 fl (7.4-10.4); MONOCYTES % 9.4 % (2.0-8.0); PLATELET 163 x1000/uL (130-400); RED CELL DISTRIBUTION WIDTH 14.1 % (11.6-14.6)
[2022-09-01] MEDS: INSULIN LISPRO 100 UNITS/ML SUBCUT SCH ×4 (08:10→21:54)
[2022-09-01] MEDS: CARVEDILOL 6.25 MG TABLET PO SCH ×2 (09:00→21:53)
[2022-09-01] MEDS: ISOSORBIDE MONONITRATE 30MG TABLET SR 24HR PO SCH (09:00)
[2022-09-01] MEDS: NIFEDIPINE XL 30MG TAB PO SCH (09:00)
[2022-09-01] MEDS: APIXABAN 2.5 MG TABLET PO SCH ×2 (09:00→18:29)
[2022-09-01] MEDS: FUROSEMIDE 40MG TABLET PO SCH (09:00)
[2022-09-01] MEDS: DOCUSATE SODIUM 100MG CAPSULE PO SCH (09:17)
[2022-09-01] MEDS: PREGABALIN 50 MG CAPSULE PO SCH ×2 (09:17→21:53)
[2022-09-01] MEDS: PANTOPRAZOLE 40MG DR TABLET PO SCH (09:17)
[2022-09-01] MEDS: LACTULOSE 20G/30ML UDC PO SCH ×2 (09:17→21:53)
[2022-09-01] MEDS: METRONIDAZOLE 500 MG PREMIX 100 ML IV SCH (09:18)
[2022-09-01] MEDS: CLOPIDOGREL 75MG TABLET PO SCH (09:18)
[2022-09-01 09:57] LABS: PHOSPHORUS 3.8 mg/dL (2.5-4.9)
[2022-09-01 11:03] VITALS: BP 144/36
[2022-09-01 15:47] VITALS: BP 125/38
[2022-09-01 15:57] VITALS: BP 151/91
[2022-09-01 20:00] VITALS: BP 161/94
[2022-09-01] MEDS: CEFTRIAXONE 1,000 MG in DEXTROSE 5% WATER 50 ML IV SCH (21:51)
[2022-09-01] MEDS: ATORVASTATIN CALCIUM 10MG TABLET PO SCH (21:53)
[2022-09-01] MEDS: METRONIDAZOLE 500MG TABLET PO SCH (21:53)
[2022-09-01] MEDS: INSULIN GLARGINE 100 UNITS/ML SUBCUT SCH (21:55)
[2022-09-02] VITALS: BP 148/85
[2022-09-02] MEDS: MORPHINE SULFATE 2 MG/ML CPJ (NOT FOR IM USE) IV PRN ×2 (01:55→09:07)
[2022-09-02 04:00] VITALS: BP 156/92
[2022-09-02] MEDS: BLOOD SUGAR DIAGNOSTIC STRIP TEST SCH (07:40)
[2022-09-02 07:53] LABS: BASOPHILS % 1.2 % (0.0-2.0); EOSINOPHILS % 6.1 % (0.0-5.0); HEMATOCRIT. 36.7 % (36.0-48.0); LYMPHOCYTES % 21.8 % (20.0-50.0); MEAN CORPUSCULAR HEMOGLOBIN 31.7 pg (28.0-32.0); MEAN PLATELET VOLUME 10.6 fl (7.4-10.4); MONOCYTES % 9.7 % (2.0-8.0); NEUTROPHILS % 61.2 % (40.0-76.0); PLATELET 159 x1000/uL (130-400); RED BLOOD CELL COUNT 3.78 mill/uL (4.2-5.4); RED CELL DISTRIBUTION WIDTH 13.9 % (11.6-14.6)
[2022-09-02 08:00] VITALS: BP_SYST 151; BP_SYST 154; BP_SYST 165; BP_DIAS 80; BP_DIAS 84; BP_DIAS 91
[2022-09-02] MEDS: INSULIN LISPRO 100 UNITS/ML SUBCUT SCH (08:10)
[2022-09-02 08:40] LABS: PHOSPHORUS 4.1 mg/dL (2.5-4.9)
[2022-09-02] MEDS: LACTULOSE 20G/30ML UDC PO SCH (08:47)
[2022-09-02] MEDS: PANTOPRAZOLE 40MG DR TABLET PO SCH (08:48)
[2022-09-02] MEDS: APIXABAN 2.5 MG TABLET PO SCH (08:48)
[2022-09-02] MEDS: DOCUSATE SODIUM 100MG CAPSULE PO SCH (08:48)
[2022-09-02] MEDS: PREGABALIN 50 MG CAPSULE PO SCH (08:48)
[2022-09-02] MEDS: CLOPIDOGREL 75MG TABLET PO SCH (08:48)
[2022-09-02] MEDS: METRONIDAZOLE 500MG TABLET PO SCH (08:53)
[2022-09-02] MEDS: FUROSEMIDE 40MG TABLET PO SCH (08:53)
[2022-09-02 09:00] VITALS: BP 170/70
[2022-09-02 10:00] VITALS: BP 155/65
[2022-09-02 11:00] VITALS: BP_SYST 125; BP_SYST 145; BP_DIAS 66; BP_DIAS 81
== END 2022-09-02 14:20 | disposition home or self-care (01) | DRG 264 ==
LOC: ER 05:15 → 7WST 08:32 → EDBEDREQ 08:35 → EDBEDREQTM 08:35 → ENRESERV 09:20 → CMPBEDREQ 09:27 → SUPCPDRO 10:08
PROVIDERS: ADMIT Internal Medicine; ATTEND Internal Medicine
PROC: 5A1D70Z Performance of Urinary Filtration, Intermittent, Less than 6 Hours Per Day (ICD-10-PCS; principal; 2022-08-30)
PROC: 0JBR0ZZ Excision of Left Foot Subcutaneous Tissue and Fascia, Open Approach (ICD-10-PCS; 2022-09-02)
DX: I13.2 Hypertensive heart and chronic kidney disease with heart failure and with stage 5 chronic kidney disease, or end stage renal disease (principal); I21.4 Non-ST elevation (NSTEMI) myocardial infarction; I50.23 Acute on chronic systolic (congestive) heart failure; N18.6 End stage renal disease; J96.90 Respiratory failure, unspecified, unspecified whether with hypoxia or hypercapnia; N25.81 Secondary hyperparathyroidism of renal origin; E10.51 Type 1 diabetes mellitus with diabetic peripheral angiopathy without gangrene; I45.10 Unspecified right bundle-branch block; E10.22 Type 1 diabetes mellitus with diabetic chronic kidney disease; E78.5 Hyperlipidemia, unspecified; F32.A Depression, unspecified; G89.4 Chronic pain syndrome; K20.90 Esophagitis, unspecified without bleeding; K52.9 Noninfective gastroenteritis and colitis, unspecified; I27.20 Pulmonary hypertension, unspecified; D63.1 Anemia in chronic kidney disease; I08.1 Rheumatic disorders of both mitral and tricuspid valves; K59.00 Constipation, unspecified; I25.10 Atherosclerotic heart disease of native coronary artery without angina pectoris; I16.0 Hypertensive urgency; Z79.01 Long term (current) use of anticoagulants; Z79.02 Long term (current) use of antithrombotics/antiplatelets; Z79.82 Long term (current) use of aspirin; Z79.899 Other long term (current) drug therapy; Z82.49 Family history of ischemic heart disease and other diseases of the circulatory system; Z99.2 Dependence on renal dialysis; Z88.2 Allergy status to sulfonamides; Z98.61 Coronary angioplasty status; Z86.73 Personal history of transient ischemic attack (TIA), and cerebral infarction without residual deficits; Z79.4 Long term (current) use of insulin; Z91.041 Radiographic dye allergy status; Z89.519 Acquired absence of unspecified leg below knee; Z86.711 Personal history of pulmonary embolism
CPT/HCPCS: 36415; 71045; 74176; 80048; 80053; 80061; 82550; 82553; 82607; 82746; 82962; 83036; 83605; 83735; 83880; 84100; 84145; 84439; 84443; 84484; 84703; 85025; 86705; 86709; 86803; 87340; 90935; 93005; 93306; 93970; 97162; 97166; 99285; J0696; J0780; J1815; J1956; J2270; J2405; J3490; J7060